=== PATIENT | male | born 1970 | race Caucasian/White ===

== ENCOUNTER → 2016-04-12 | Outpatient (CLI) | payer MEDICARE, BC ==
[2016-04-12 08:37] LABS: Basophils # (A) 0.1 k/uL (0-0.2); Basophils % (A) 1 %; CHCM 33.3; Eosinophils # (A) 0.2 k/uL (0-0.7); Eosinophils % (A) 3 %; HDW 2.71; HGB 15.6 gm/dL (13.0-17.5); Luc # (Auto) 0.13; Luc % (Auto) 2; Lymphocytes # (A) 0.9 k/uL (1.0-4.8); Lymphocytes % (A) 13 %; MCH 28.9 pg (25.0-35.0); MCHC 31.8 g/dL (31.0-37.0); MCV 90.7 fL (80.0-100.0); Mean Platelet Volume 8.6; Monocytes # (A) 0.7 k/uL (0-1.0); Monocytes % (A) 10 %; Neutrophils % (A) 72 %; RDW 13.3 % (11.5-15.5); WBC 6.9 k/uL (3.8-10.6); WBC (Perox) 7.23
[2016-04-12 11:29] LABS: Magnesium 2.2 mg/dL (1.6-2.3); Phosphorous 3.6 mg/dL (2.5-4.5)
[2016-04-12 11:40] LABS: % Iron Saturation 57.6 % (20-50)
== END | disposition home or self-care (01) ==
LOC: LABWHC1 07:47
PROVIDERS: ATTEND Nurse Practitioner Family
DX: N18.3 Chronic kidney disease, stage 3 (moderate) (principal); D64.9 Anemia, unspecified; N25.81 Secondary hyperparathyroidism of renal origin; E55.9 Vitamin D deficiency, unspecified; E21.3 Hyperparathyroidism, unspecified; M10.9 Gout, unspecified; N39.0 Urinary tract infection, site not specified; Z94.0 Kidney transplant status
CPT/HCPCS: 36415; 80053; 80061; 80197; 82248; 82306; 82728; 83036; 83540; 83550; 83735; 83970; 84100; 84550; 85025; 87799

== ENCOUNTER → 2016-04-22 | Outpatient (CLI) | payer MEDICARE, BC ==
[2016-04-22 08:45] LABS: Calcium 9.8 mg/dL (8.4-10.2); Potassium 4.9 mmol/L (3.5-5.1)
== END | disposition home or self-care (01) ==
LOC: LABWHC1 08:16
PROVIDERS: ATTEND Internal Medicine Nephrology
DX: Z94.0 Kidney transplant status (principal)
CPT/HCPCS: 36415; 80048

== ENCOUNTER → 2016-07-06 | Outpatient (CLI) | payer MEDICARE, BC ==
[2016-07-06 08:40] LABS: Appearance,Urine Clear (Clear); Bacteria,Urine Few /hpf; Bilirubin,Urine Negative (Negative); Glucose,Urine (UA) Negative (Negative); Ketones,Urine Negative (Negative); Leukocyte Esterase,Urine Moderate (Negative); Nitrite,Urine Negative (Negative); PH, Urine 6.5 (5.0-8.0); Particle Count 9235; Protein,Urine Negative (Negative); RBC,Urine <1 /hpf (0-5); Specific Gravity,Urine 1.004 (1.001-1.035); UA Billing (MACRO vs. MICRO) MICRO; Urobilinogen,Urine <2.0 mg/dL (<2.0); WBC,Urine 18 /hpf (0-5)
[2016-07-06 09:37] LABS: % Iron Saturation 91.2 % (20-50)
== END | disposition home or self-care (01) ==
LOC: LABWHC1 08:07
PROVIDERS: ATTEND Internal Medicine Nephrology
DX: E55.9 Vitamin D deficiency, unspecified (principal); E21.3 Hyperparathyroidism, unspecified; N39.0 Urinary tract infection, site not specified; Z94.0 Kidney transplant status
CPT/HCPCS: 36415; 81001; 82306; 82728; 83540; 83550; 83970

== ENCOUNTER 2016-09-26 02:55 | Emergency (ER) | payer MEDICARE, BC ==
--- NOTE | 2016-09-26 02:59 | ED ---
General Adult HPI - General Stated complaint: Hypoglycemia Time Seen by Provider: 09/26/16 02:58 Source: RN notes reviewed, old records reviewed - History of Present Illness Initial comments: This is a 45-year-old male here for evaluation of low blood sugar, emesis called the patient's house patient was found to be hypoglycemic. Patient does have a history of hypoglycemia. Is currently doing medication changes, denies alcohol, denies overdose, patient at this time is awake and alert without complaint - Related Data Home Medications Medication Instructions Recorded Confirmed Insulin Aspart [NovoLOG] See Protocol SQ DAILY 06/14/14 11/05/15 Insulin Glargine [Lantus] 25 unit SQ HS 06/14/14 11/05/15 Metoprolol Tartrate [Lopressor] 100 mg PO BID 06/14/14 11/05/[address] [Myfortic] 180 mg PO BID 06/14/14 11/05/15 Tamsulosin HCl [Flomax] 0.4 mg PO DAILY 06/14/14 11/05/15 amLODIPine [Norvasc] 5 mg PO BID 06/14/14 11/05/15 hydrALAZINE HCL [Apresoline] 100 mg PO TID 06/14/14 11/05/15 oxyCODONE-APAP 5-325MG [Percocet 1 each PO Q6HR PRN 06/14/14 11/05/15 5-325] predniSONE 10 mg PO DAILY 06/14/14 11/05/15 Glucagon Emergency Kit 1 mg SQ ONCE 09/10/14 11/05/15 Tacrolimus [Prograf] 3 mg PO Q12H 11/05/15 11/05/15 cloNIDine HCL [Catapres] 0.1 mg PO HS 11/05/15 11/05/15 Allergies Allergy/AdvReac Type Severity Reaction Status Date / Time bisoprolol fumarate Allergy Nausea & Verified 11/05/15 09:29 [From Ziac] Vomiting hydrochlorothiazide Allergy Nausea & Verified 11/05/15 09:29 [From Ziac] Vomiting Review of Systems ROS Statement: Those systems with pertinent positive or pertinent negative responses have been documented in the HPI. ROS Other: All systems not noted in ROS Statement are negative. Past Medical History Past Medical History: Diabetes Mellitus, Hypertension Additional Past Medical History / Comment(s): blind History of Any Multi-Drug Resistant Organisms: VRE Date of last positivie culture/infection: 06/15/2014 MDRO Source:: Urine-Enterococcus faecium Additional Past Surgical History / Comment(s): blind, Kidney transplant 2012 Past Psychological History: No Psychological Hx Reported Smoking Status: Never smoker Past Alcohol Use History: None Reported Past Drug Use History: None Reported General Exam General appearance: alert, in no apparent distress Head exam: Present: atraumatic, normocephalic, normal inspection Eye exam: Present: normal appearance, PERRL, EOMI. Absent: scleral icterus, conjunctival injection, periorbital swelling ENT exam: Present: normal exam, mucous membranes moist Neck exam: Present: normal inspection. Absent: tenderness, meningismus, lymphadenopathy Respiratory exam: Present: normal lung sounds bilaterally. Absent: respiratory distress, wheezes, rales, rhonchi, stridor Cardiovascular Exam: Present: regular rate, normal rhythm, normal heart sounds. Absent: systolic murmur, diastolic murmur, rubs, gallop, clicks GI/Abdominal exam: Present: soft, normal bowel sounds. Absent: distended, tenderness, guarding, rebound, rigid Extremities exam: Present: normal inspection, full ROM, normal capillary refill. Absent: tenderness, pedal edema, joint swelling, calf tenderness Back exam: Present: normal inspection Neurological exam: Present: alert, oriented X3, CN II-XII intact Psychiatric exam: Present: normal affect, normal mood Skin exam: Present: warm, dry, intact, normal color. Absent: rash Course - Reevaluation(s) Reevaluation #1: 09/26/16 02:58 Patient's blood sugar remained stable, patient able to eat and drink without difficulty Medical Decision Making - Medical Decision Making 45-year-old ER for evaluation of hypoglycemia, symptoms resolved upon arrival to emergency room. Patient this time is asymptomatic, able to eat patient observed in emergency room for an hour without difficulty recurrence. Patient can be discharged home Disposition Clinical Impression: Hypoglycemia Disposition: HOME SELF-CARE Condition: Good Instructions: Hypoglycemia in a Person with Diabetes (ED) Referrals: Jim Acuna MD [Primary Care Provider] - 1-2 days
[2016-09-26 03:32] LABS: Glucose,Whole Blood 84 mg/dL (75-99)
[2016-09-26 05:07] VITALS: RESP 18
[2016-09-26 05:07] LABS: Glucose,Whole Blood 166 mg/dL (75-99)
[2016-09-26 05:37] VITALS: BP 135/79; PULSE 68; TEMP 97.3
== END 2016-09-26 05:36 | disposition home or self-care (01) ==
LOC: EC 02:55
DX: E11.649 Type 2 diabetes mellitus with hypoglycemia without coma (principal); R11.10 Vomiting, unspecified; I10 Essential (primary) hypertension; Z79.4 Long term (current) use of insulin; Z79.52 Long term (current) use of systemic steroids; Z79.899 Other long term (current) drug therapy; Z88.8 Allergy status to other drugs, medicaments and biological substances
CPT/HCPCS: 36415; 99285

== ENCOUNTER → 2016-10-07 | Outpatient (CLI) | payer MEDICARE, BC ==
[2016-10-07 08:11] LABS: Appearance,Urine Clear (Clear); Bilirubin,Urine Negative (Negative); Glucose,Urine (UA) Negative (Negative); Ketones,Urine Negative (Negative); Leukocyte Esterase,Urine Negative (Negative); Nitrite,Urine Negative (Negative); Protein,Urine Negative (Negative); Specific Gravity,Urine 1.004 (1.001-1.035); UA Billing (MACRO vs. MICRO) CHEM; Urobilinogen,Urine <2.0 mg/dL (<2.0)
[2016-10-07 08:18] LABS: Basophils # (A) 0.1 k/uL (0-0.2); Basophils % (A) 2 %; CH 30.7; CHCM 33.8; Eosinophils # (A) 0.2 k/uL (0-0.7); Eosinophils % (A) 3 %; HCT 47.7 % (39.0-53.0); HDW 2.69; HGB 16.2 gm/dL (13.0-17.5); Luc # (Auto) 0.21; Luc % (Auto) 3; Lymphocytes # (A) 0.9 k/uL (1.0-4.8); Lymphocytes % (A) 12 %; MCHC 33.9 g/dL (31.0-37.0); MCV 91.4 fL (80.0-100.0); Mean Platelet Volume 9.1; Monocytes # (A) 0.7 k/uL (0-1.0); Monocytes % (A) 9 %; Neutrophils # (A) 5.2 k/uL (1.3-7.7); Neutrophils % (A) 72 %; RBC 5.22 m/uL (4.30-5.90); RDW 14.7 % (11.5-15.5); WBC 7.2 k/uL (3.8-10.6); WBC (Perox) 7.04
[2016-10-07 09:46] LABS: Phosphorous 3.4 mg/dL (2.5-4.5)
[2016-10-07 09:57] LABS: % Iron Saturation 73.2 % (20-50)
== END | disposition home or self-care (01) ==
LOC: LABWHC1 07:38
PROVIDERS: ATTEND Internal Medicine Nephrology
DX: N18.3 Chronic kidney disease, stage 3 (moderate) (principal); D63.1 Anemia in chronic kidney disease; N25.81 Secondary hyperparathyroidism of renal origin; N39.0 Urinary tract infection, site not specified; Z94.0 Kidney transplant status
CPT/HCPCS: 36415; 80197; 81003; 82306; 82728; 83540; 83550; 83735; 83970; 84100; 85025

== ENCOUNTER 2016-10-28 04:52 | Emergency (ER) | payer MEDICARE, BC ==
[2016-10-28 05:00] LABS: Glucose,Whole Blood 152 mg/dL (75-99)
[2016-10-28 05:02] VITALS: BP 182/87; PULSE 70; RESP 18; TEMP 98
--- NOTE | 2016-10-28 05:37 | ED ---
General Adult HPI - General Chief complaint: Recheck/Abnormal Lab/Rx Stated complaint: Hypoglycemia Time Seen by Provider: 10/28/16 05:08 Source: patient Mode of arrival: EMS Limitations: no limitations - History of Present Illness Initial comments: This patient is a 46-year-old man with history of diabetes and previous kidney transplant, who presents by EMS. Patient states that he believes he had a hypoglycemic episode. EMS was phoned by the patient's family member when they found it difficult to awaken him. In past times, his blood sugar has been low. When EMS arrived they were able to arouse the patient and they did find that his blood sugar was proximally 60. They did give dextrose, and brought the patient here. On arrival, the patient is alert and oriented and he does not have any complaints. He does state that he is sometimes difficult to awaken in the morning though this is often associated with his blood sugar being low. He is not expressing any other symptoms like he usually has, including no headache or diaphoresis. -: minutes(s) Improves with: none Worsens with: none Associated Symptoms: denies other symptoms Treatments Prior to Arrival: none - Related Data Home Medications Medication Instructions Recorded Confirmed Insulin Aspart [NovoLOG] See Protocol SQ DAILY 06/14/14 09/26/16 Insulin Glargine [Lantus] 25 unit SQ HS 06/14/14 09/26/16 Metoprolol Tartrate [Lopressor] 100 mg PO BID 06/14/14 09/26/[address] [Myfortic] 180 mg PO BID 06/14/14 09/26/16 Tamsulosin HCl [Flomax] 0.4 mg PO DAILY 06/14/14 09/26/16 amLODIPine [Norvasc] 5 mg PO BID 06/14/14 09/26/16 hydrALAZINE HCL [Apresoline] 100 mg PO TID 06/14/14 09/26/16 oxyCODONE-APAP 5-325MG [Percocet 1 each PO Q6HR PRN 06/14/14 09/26/16 5-325] predniSONE 10 mg PO DAILY 06/14/14 09/26/16 Glucagon Emergency Kit 1 mg SQ ONCE 09/10/14 09/26/16 Tacrolimus [Prograf] 3 mg PO Q12H 11/05/15 09/26/16 cloNIDine HCL [Catapres] 0.1 mg PO HS 11/05/15 09/26/16 Allergies Allergy/AdvReac Type Severity Reaction Status Date / Time bisoprolol fumarate Allergy Nausea & Verified 10/28/16 05:03 [From Ziac] Vomiting hydrochlorothiazide Allergy Nausea & Verified 10/28/16 05:03 [From Ziac] Vomiting Review of Systems ROS Statement: Those systems with pertinent positive or pertinent negative responses have been documented in the HPI. ROS Other: All systems not noted in ROS Statement are negative. Constitutional: Denies: fever, chills, weakness Eyes: Denies: vision change Respiratory: Denies: cough, dyspnea Cardiovascular: Denies: chest pain Gastrointestinal: Denies: abdominal pain, vomiting, diarrhea Musculoskeletal: Denies: back pain Skin: Denies: rash Neurological: Denies: headache, weakness, numbness Past Medical History Past Medical History: Diabetes Mellitus, Hypertension Additional Past Medical History / Comment(s): blind History of Any Multi-Drug Resistant Organisms: VRE Date of last positivie culture/infection: 06/15/2014 MDRO Source:: Urine-Enterococcus faecium Additional Past Surgical History / Comment(s): blind, Kidney transplant 2011 Past Psychological History: No Psychological Hx Reported Smoking Status: Never smoker Past Alcohol Use History: Occasional Past Drug Use History: None Reported General Exam General appearance: alert, in no apparent distress Head exam: Present: atraumatic, normocephalic ENT exam: Present: normal oropharynx Neck exam: Present: normal inspection, full ROM Respiratory exam: Present: normal lung sounds bilaterally Cardiovascular Exam: Present: regular rate, normal rhythm, normal heart sounds. Absent: systolic murmur, diastolic murmur, rubs, gallop GI/Abdominal exam: Present: soft. Absent: distended, tenderness, guarding, rebound Extremities exam: Present: normal inspection, normal capillary refill. Absent: pedal edema, calf tenderness Back exam: Present: normal inspection. Absent: CVA tenderness (R), CVA tenderness (L) Neurological exam: Present: alert, oriented X3. Absent: motor sensory deficit Skin exam: Present: warm, dry, intact, normal color. Absent: rash Course Vital Signs 10/28/16 10/28/16 04:55 05:56 Temperature 98.0 F 98.0 F Pulse Rate 70 70 Respiratory 18 18 Rate Blood Pressure 182/87 182/87 O2 Sat by Pulse 98 98 Oximetry Medical Decision Making - Lab Data Lab Results 10/28/16 Range/Units 04:56 POC Glucose (mg/dL) 152 H (75-99) mg/dL POC Glu Brush Filler Hand ID Francine Hernandez Disposition Disposition: HOME SELF-CARE Condition: Good Instructions: Hypoglycemia in a Person with Diabetes (ED) Referrals: Jim Acuna MD [Primary Care Provider] - 1-2 days
== END 2016-10-28 05:56 | disposition home or self-care (01) ==
LOC: EC 04:52
DX: E11.649 Type 2 diabetes mellitus with hypoglycemia without coma (principal); I10 Essential (primary) hypertension; Z94.0 Kidney transplant status; Z88.8 Allergy status to other drugs, medicaments and biological substances; Z79.4 Long term (current) use of insulin; Z79.52 Long term (current) use of systemic steroids; Z79.899 Other long term (current) drug therapy
CPT/HCPCS: 36415; 93005; 99285

== ENCOUNTER 2016-11-26 11:35 | Emergency (ER) | payer MEDICARE, BC ==
[2016-11-26 11:50] VITALS: RESP 18
--- NOTE | 2016-11-26 11:54 | ED ---
General Adult HPI - General Chief complaint: Recheck/Abnormal Lab/Rx Stated complaint: Hypoglycemia Time Seen by Provider: 11/26/16 11:40 Source: EMS, RN notes reviewed Mode of arrival: EMS Limitations: no limitations - History of Present Illness Initial comments: This is a 46-year-old male who is brought in by EMS because his sugar was low and he had decreased responsiveness. When EMS got a line and gave him D50 and immediately became alert and oriented 3. Patient states he had a small breakfast and normal in the did some walking up and down stairs lifting some totes that he normally doesn't do. Patient states he has no complaints he has not been sick recently he denies any headache denies numbness weakness. Patient denies lightheadedness or dizziness. Patient denies any chest pain palpitations difficulty breathing or shortness of breath per patient denies any recent fever chills or cough. Patient denies abdominal pain patient denies nausea vomiting or diarrhea. - Related Data Home Medications Medication Instructions Recorded Confirmed Insulin Aspart [NovoLOG] See Protocol SQ DAILY 06/14/14 09/26/16 Insulin Glargine [Lantus] 25 unit SQ HS 06/14/14 09/26/16 Metoprolol Tartrate [Lopressor] 100 mg PO BID 06/14/14 09/26/[address] [Myfortic] 180 mg PO BID 06/14/14 09/26/16 Tamsulosin HCl [Flomax] 0.4 mg PO DAILY 06/14/14 09/26/16 amLODIPine [Norvasc] 5 mg PO BID 06/14/14 09/26/16 hydrALAZINE HCL [Apresoline] 100 mg PO TID 06/14/14 09/26/16 oxyCODONE-APAP 5-325MG [Percocet 1 each PO Q6HR PRN 06/14/14 09/26/16 5-325] predniSONE 10 mg PO DAILY 06/14/14 09/26/16 Glucagon Emergency Kit 1 mg SQ ONCE 09/10/14 09/26/16 Tacrolimus [Prograf] 3 mg PO Q12H 11/05/15 09/26/16 cloNIDine HCL [Catapres] 0.1 mg PO HS 11/05/15 09/26/16 Allergies Allergy/AdvReac Type Severity Reaction Status Date / Time bisoprolol fumarate Allergy Nausea & Verified 10/28/16 05:03 [From Ziac] Vomiting hydrochlorothiazide Allergy Nausea & Verified 10/28/16 05:03 [From Ziac] Vomiting Review of Systems ROS Statement: Those systems with pertinent positive or pertinent negative responses have been documented in the HPI. ROS Other: All systems not noted in ROS Statement are negative. Past Medical History Past Medical History: Diabetes Mellitus, Hypertension Additional Past Medical History / Comment(s): blind History of Any Multi-Drug Resistant Organisms: VRE Date of last positivie culture/infection: 06/15/2014 MDRO Source:: Urine-Enterococcus faecium Additional Past Surgical History / Comment(s): blind, Kidney transplant 2011 Past Psychological History: No Psychological Hx Reported Smoking Status: Never smoker Past Alcohol Use History: Occasional Past Drug Use History: None Reported General Exam - General Exam Comments Initial Comments: GENERAL: Patient is well-developed and well-nourished. Patient is nontoxic and well- hydrated and is in no acute distress. ENT: Neck is soft and supple. No significant lymphadenopathy is noted. Oropharynx is clear. Moist mucous membranes. Neck has full range of motion without eliciting any pain. EYES: The sclera were anicteric and conjunctiva were pink and moist. Extraocular movements were intact and pupils were equal round and reactive to light. Eyelids were unremarkable. PULMONARY: Unlabored respirations. Good breath sounds bilaterally. No audible rales rhonchi or wheezing was noted. CARDIOVASCULAR: There is a regular rate and rhythm without any murmurs gallops or rubs. ABDOMEN: Soft and nontender with normal bowel sounds. No palpable organomegaly was noted. There is no palpable pulsatile mass. SKIN: Skin is clear with no lesions or rashes and otherwise unremarkable. NEUROLOGIC: Patient is alert and oriented x3. Cranial nerves II through XII are grossly intact. Motor and sensory are also intact. Normal speech, volume and content. Symmetrical smile. MUSCULOSKELETAL: Normal extremities with adequate strength and full range of motion. LYMPHATICS: No significant lymphadenopathy is noted PSYCHIATRIC: Normal psychiatric evaluation. Normal interpersonal interactions appears functionally intact in deals appropriately with others. No signs of depression. No signs of anxiety. Limitations: no limitations Course Vital Signs 11/26/16 11/26/16 11:42 12:29 Temperature 98.7 F Pulse Rate 62 67 Respiratory 18 18 Rate Blood Pressure 169/84 136/75 O2 Sat by Pulse 98 98 Oximetry Medical Decision Making - Medical Decision Making Patient has been asymptomatic while in the emergency department. Patient ate well in the emergency department. - Lab Data Result diagrams: 11/26/16 12:02 11/26/16 12:02 Lab Results 11/26/16 11/26/16 11/26/16 Range/Units 11:55 12:02 12:02 WBC 8.9 (3.8-10.6) k/uL RBC 5.61 (4.30-5.90) m/uL Hgb 16.8 (13.0-17.5) gm/dL Hct 50.1 (39.0-53.0) % MCV 89.2 (80.0-100.0) fL MCH 29.9 (25.0-35.0) pg MCHC 33.5 (31.0-37.0) g/dL RDW 14.7 (11.5-15.5) % Plt Count 56 L D (150-450) k/uL Neutrophils % 88 % Lymphocytes % 5 % Monocytes % 6 % Eosinophils % 1 % Basophils % 0 % Neutrophils # 7.8 H (1.3-7.7) k/uL Lymphocytes # 0.4 L (1.0-4.8) k/uL Monocytes # 0.5 (0-1.0) k/uL Eosinophils # 0.1 (0-0.7) k/uL Basophils # 0.0 (0-0.2) k/uL Manual Slide Review Performed Large Platelets Present Sodium 141 (137-145) mmol/L Potassium 4.4 (3.5-5.1) mmol/L Chloride 106 (98-107) mmol/L Carbon Dioxide 25 (22-30) mmol/L Anion Gap 10 mmol/L BUN 20 (9-20) mg/dL Creatinine 1.39 H (0.66-1.25) mg/dL Est GFR (MDRD) Af Amer >60 (>60 ml/min/1.73 sqM) Est GFR (MDRD) Non-Af 55 (>60 ml/min/1.73 sqM) Glucose 134 H (74-99) mg/dL POC Glucose (mg/dL) 143 H (75-99) mg/dL POC Glu Multiple Cut Off Saw Operator ID Bowling, Ana Rosa Calcium 10.0 (8.4-10.2) mg/dL Total Bilirubin 0.7 (0.2-1.3) mg/dL AST 24 (17-59) U/L ALT 30 (21-72) U/L Alkaline Phosphatase 62 (38-126) U/L Total Protein 7.3 (6.3-8.2) g/dL Albumin 4.6 (3.5-5.0) g/dL Disposition Clinical Impression: Hypoglycemia Disposition: HOME SELF-CARE Instructions: Hypoglycemia in a Person with Diabetes (ED) Referrals: Jim Acuna MD [Primary Care Provider] - 1-2 days Time of Disposition: 12:43
[2016-11-26 11:58] LABS: Glucose,Whole Blood 143 mg/dL (75-99)
[2016-11-26 12:10] LABS: Basophils % (A) 0 %; CH 30.9; CHCM 34.9; Eosinophils # (A) 0.1 k/uL (0-0.7); Eosinophils % (A) 1 %; HCT 50.1 % (39.0-53.0); HDW 2.77; HGB 16.8 gm/dL (13.0-17.5); Luc # (Auto) 0.07; Luc % (Auto) 1; Lymphocytes # (A) 0.4 k/uL (1.0-4.8); Lymphocytes % (A) 5 %; MCH 29.9 pg (25.0-35.0); MCHC 33.5 g/dL (31.0-37.0); MCV 89.2 fL (80.0-100.0); Mean Platelet Volume 9.3; Monocytes # (A) 0.5 k/uL (0-1.0); Monocytes % (A) 6 %; Neutrophils # (A) 7.8 k/uL (1.3-7.7); Neutrophils % (A) 88 %; RBC 5.61 m/uL (4.30-5.90); RDW 14.7 % (11.5-15.5); WBC 8.9 k/uL (3.8-10.6); WBC (Perox) 8.71
[2016-11-26 12:18] LABS: ALT 30 U/L (21-72); AST 24 U/L (17-59); Alkaline Phosphatase 62 U/L (38-126); Anion Gap 10 mmol/L; Blood Urea Nitrogen 20 mg/dL (9-20); Carbon Dioxide 25 mmol/L (22-30); Chloride 106 mmol/L (98-107); Glucose 134 mg/dL (74-99); Non-African American GFR(MDRD) 55 (>60 ml/min/1.73 sqM); Potassium 4.4 mmol/L (3.5-5.1); Sodium 141 mmol/L (137-145); Total Bilirubin 0.7 mg/dL (0.2-1.3); Total Protein 7.3 g/dL (6.3-8.2)
[2016-11-26 12:34] LABS: Large Platelets Present; Manual Review Performed
[2016-11-26 12:56] VITALS: BP 121/67; PULSE 72; TEMP 97.8
== END 2016-11-26 12:56 | disposition home or self-care (01) ==
LOC: EC 11:35
DX: E11.649 Type 2 diabetes mellitus with hypoglycemia without coma (principal); I10 Essential (primary) hypertension; Z94.0 Kidney transplant status; Z79.51 Long term (current) use of inhaled steroids; Z79.4 Long term (current) use of insulin; Z79.899 Other long term (current) drug therapy; Z88.8 Allergy status to other drugs, medicaments and biological substances
CPT/HCPCS: 36415; 80053; 85025; 99285

== ENCOUNTER 2017-02-15 05:54 | Emergency (ER) | payer MEDICARE, BC ==
[2017-02-15 06:01] LABS: Glucose,Whole Blood 177 mg/dL (75-99)
[2017-02-15 06:04] VITALS: RESP 18; TEMP 97.1
--- NOTE | 2017-02-15 06:12 | ED ---
General Adult HPI - General Stated complaint: hypoglycemia Time Seen by Provider: 02/15/17 05:58 Source: patient, EMS Mode of arrival: EMS Limitations: no limitations - History of Present Illness Initial comments: This is a 46-year-old type I diabetic who presents emergency department for difficulty with waking. The patient's father had a difficult time arousing him this morning and thus called an ambulance. The ambulance stated that his initial blood sugar on scene was 50. He was given glucose in route and had complete resolution of his symptoms. The patient states he is currently asymptomatic. He states that he has been compliant with his medications. He is currently on Levemir 38 units in the morning which she has been compliant with. He is also on a sliding scale insulin for the rest of his meals. The patient states that this has happened to him once previously. He denies any chest pain or short of breath. No nausea or vomiting. No other complaints. - Related Data Home Medications Medication Instructions Recorded Confirmed Insulin Aspart [NovoLOG] See Protocol SQ DAILY 06/14/14 01/23/17 Metoprolol Tartrate [Lopressor] 100 mg PO BID 06/14/14 01/23/[address] [Myfortic] 180 mg PO BID 06/14/14 01/23/17 Tamsulosin HCl [Flomax] 0.4 mg PO DAILY 06/14/14 01/23/17 amLODIPine [Norvasc] 5 mg PO BID 06/14/14 01/23/17 hydrALAZINE HCL [Apresoline] 100 mg PO TID 06/14/14 01/23/17 oxyCODONE-APAP 5-325MG [Percocet 1 tab PO Q6HR PRN 06/14/14 01/23/17 5-325] predniSONE 10 mg PO DAILY 06/14/14 01/23/17 Glucagon Emergency Kit 1 mg SQ ONCE 09/10/14 01/23/17 Tacrolimus [Prograf] 3 mg PO Q12H 11/05/15 01/23/17 cloNIDine HCL [Catapres] 0.1 mg PO HS 11/05/15 01/23/17 Insulin Detemir [Levemir Flextouch] 38 unit SQ DAILY 11/26/16 01/23/17 L.acidoph,Paracasei, B.lactis 1 cap PO DAILY 11/26/16 01/23/17 [Probiotic] Multivitamins, Thera [Multivitamin 1 tab PO DAILY 11/26/16 01/23/17 (formulary)] [place]-3 Fatty Acids/Fish Oil [Fish 1 cap PO DAILY 11/26/16 01/23/17 Oil 1,000 mg Softgel] Sodium Polystyrene Sulfon/Sorb 15 gm PO Q30D 01/23/17 01/23/17 [Kionex 15 gm/60 ml Suspension] Allergies Allergy/AdvReac Type Severity Reaction Status Date / Time bisoprolol fumarate Allergy Nausea & Verified 02/15/17 06:04 [From Ziac] Vomiting hydrochlorothiazide Allergy Nausea & Verified 02/15/17 06:04 [From Ziac] Vomiting Review of Systems ROS Statement: Those systems with pertinent positive or pertinent negative responses have been documented in the HPI. ROS Other: All systems not noted in ROS Statement are negative. Past Medical History Past Medical History: Diabetes Mellitus, Hypertension Additional Past Medical History / Comment(s): blind History of Any Multi-Drug Resistant Organisms: VRE Date of last positivie culture/infection: 06/15/2014 MDRO Source:: Urine-Enterococcus faecium Additional Past Surgical History / Comment(s): blind, Kidney transplant 2011 Past Psychological History: No Psychological Hx Reported Smoking Status: Never smoker Past Alcohol Use History: Occasional Past Drug Use History: None Reported General Exam - General Exam Comments Initial Comments: Constitutional: Awake alert Appears comfortable Head: Normocephalic atraumatic Eyes: no conjunctival injection No scleral icterus EOMI Neck: No JVD Supple Heart: Regular rate rhythm normal S1-S2 no murmurs Lungs: Clear to auscultation bilaterally No wheezing No rales Abdomen: Soft nondistended nontender Extremities: Non edematous DP pulses intact Radial pulses intact Neuro: A&Ox3 No focal neurologic deficits Psych: Appropriate mood and affect Limitations: no limitations Course Vital Signs 02/15/17 05:58 Temperature 97.1 F L Pulse Rate 77 Respiratory 18 Rate Blood Pressure 158/83 O2 Sat by Pulse 99 Oximetry Medical Decision Making - Medical Decision Making Is a 46-year-old male presents emergency department for hypoglycemia. The patient was watched emergency department for one hour and his sugars did not decrease. He has no complaints. He is going to go home. Told to continue to monitor his sugars and call his primary doctor. If he has continued problems he needs to return emergency Department. All questions were answered. - Lab Data Lab Results 02/15/17 02/15/17 Range/Units 05:56 06:53 POC Glucose (mg/dL) 177 H 154 H (75-99) mg/dL POC Glu Office Associate Marlyn Monroe Jalissa Disposition Clinical Impression: Hypoglycemia Disposition: HOME SELF-CARE Condition: Stable Instructions: Hypoglycemia in a Person with Diabetes (ED) Referrals: Jim Acuna MD [Primary Care Provider] - 1-2 days
[2017-02-15 06:57] LABS: Glucose,Whole Blood 154 mg/dL (75-99)
[2017-02-15 07:12] VITALS: BP 131/63; PULSE 78
== END 2017-02-15 07:09 | disposition home or self-care (01) ==
LOC: EC 05:54
DX: E11.649 Type 2 diabetes mellitus with hypoglycemia without coma (principal); I10 Essential (primary) hypertension; Z79.4 Long term (current) use of insulin; Z79.52 Long term (current) use of systemic steroids; Z79.899 Other long term (current) drug therapy
CPT/HCPCS: 36415; 99284

== ENCOUNTER 2017-03-10 07:02 | Emergency (ER) | payer MEDICARE, BC ==
[2017-03-10 07:10] VITALS: BP 148/82; PULSE 80; RESP 16; TEMP 96
[2017-03-10 07:11] LABS: Glucose,Whole Blood 138 mg/dL (75-99)
--- NOTE | 2017-03-10 07:51 | ED ---
General Adult HPI - General Chief complaint: Recheck/Abnormal Lab/Rx Stated complaint: HYPOGLYCEMIA Time Seen by Provider: 03/10/17 07:25 Source: EMS, RN notes reviewed, old records reviewed Mode of arrival: EMS Limitations: no limitations - History of Present Illness Initial comments: This is a 46-year-old male to the ER for evaluation of low blood sugar. Patient sent in and brought in by EMS for evaluation of low blood sugar. Patient's blood sugars improved, he is on insulin he is able to eat at this time. Patient denies any other complaints. States that he feels normal - Related Data Home Medications Medication Instructions Recorded Confirmed Insulin Aspart [NovoLOG] See Protocol SQ DAILY 06/14/14 01/23/17 Metoprolol Tartrate [Lopressor] 100 mg PO BID 06/14/14 01/23/[address] [Myfortic] 180 mg PO BID 06/14/14 01/23/17 Tamsulosin HCl [Flomax] 0.4 mg PO DAILY 06/14/14 01/23/17 amLODIPine [Norvasc] 5 mg PO BID 06/14/14 01/23/17 hydrALAZINE HCL [Apresoline] 100 mg PO TID 06/14/14 01/23/17 oxyCODONE-APAP 5-325MG [Percocet 1 tab PO Q6HR PRN 06/14/14 01/23/17 5-325] predniSONE 10 mg PO DAILY 06/14/14 01/23/17 Glucagon Emergency Kit 1 mg SQ ONCE 09/10/14 01/23/17 Tacrolimus [Prograf] 3 mg PO Q12H 11/05/15 01/23/17 cloNIDine HCL [Catapres] 0.1 mg PO HS 11/05/15 01/23/17 Insulin Detemir [Levemir Flextouch] 38 unit SQ DAILY 11/26/16 01/23/17 L.acidoph,Paracasei, B.lactis 1 cap PO DAILY 11/26/16 01/23/17 [Probiotic] Multivitamins, Thera [Multivitamin 1 tab PO DAILY 11/26/16 01/23/17 (formulary)] [place]-3 Fatty Acids/Fish Oil [Fish 1 cap PO DAILY 11/26/16 01/23/17 Oil 1,000 mg Softgel] Sodium Polystyrene Sulfon/Sorb 15 gm PO Q30D 01/23/17 01/23/17 [Kionex 15 gm/60 ml Suspension] Allergies Allergy/AdvReac Type Severity Reaction Status Date / Time bisoprolol fumarate Allergy Nausea & Verified 03/10/17 07:10 [From Ziac] Vomiting hydrochlorothiazide Allergy Nausea & Verified 03/10/17 07:10 [From Ziac] Vomiting Review of Systems ROS Statement: Those systems with pertinent positive or pertinent negative responses have been documented in the HPI. ROS Other: All systems not noted in ROS Statement are negative. Past Medical History Past Medical History: Diabetes Mellitus, Hypertension Additional Past Medical History / Comment(s): blind History of Any Multi-Drug Resistant Organisms: VRE Date of last positivie culture/infection: 06/15/2014 MDRO Source:: Urine-Enterococcus faecium Additional Past Surgical History / Comment(s): blind, Kidney transplant 2011 Past Psychological History: No Psychological Hx Reported Smoking Status: Never smoker Past Alcohol Use History: Occasional Past Drug Use History: None Reported General Exam Limitations: no limitations General appearance: alert, in no apparent distress Head exam: Present: atraumatic, normocephalic, normal inspection Eye exam: Present: normal appearance, PERRL, EOMI. Absent: scleral icterus, conjunctival injection, periorbital swelling ENT exam: Present: normal exam, mucous membranes moist Neck exam: Present: normal inspection. Absent: tenderness, meningismus, lymphadenopathy Respiratory exam: Present: normal lung sounds bilaterally. Absent: respiratory distress, wheezes, rales, rhonchi, stridor Cardiovascular Exam: Present: regular rate, normal rhythm, normal heart sounds. Absent: systolic murmur, diastolic murmur, rubs, gallop, clicks GI/Abdominal exam: Present: soft, normal bowel sounds. Absent: distended, tenderness, guarding, rebound, rigid Extremities exam: Present: normal inspection, full ROM, normal capillary refill. Absent: tenderness, pedal edema, joint swelling, calf tenderness Back exam: Present: normal inspection Neurological exam: Present: alert, oriented X3, CN II-XII intact Psychiatric exam: Present: normal affect, normal mood Skin exam: Present: warm, dry, intact, normal color. Absent: rash Course Vital Signs 03/10/17 07:03 Temperature 96 F L Pulse Rate 80 Respiratory 16 Rate Blood Pressure 148/82 O2 Sat by Pulse 98 Oximetry Medical Decision Making - Medical Decision Making 46 male the ER for evaluation. Patient presents to ER for evaluation regarding low blood sugar, patient has history of low blood sugar, patient states he feels normal and wants to be discharged home - Lab Data Lab Results 03/10/17 Range/Units 07:09 POC Glucose (mg/dL) 138 H (75-99) mg/dL POC Glu Quill Cleaner ID Rosio Beverly Disposition Clinical Impression: Hypoglycemia Disposition: HOME SELF-CARE Condition: Good Instructions: Hypoglycemia in a Person with Diabetes (ED) Referrals: Jim Acuna MD [Primary Care Provider] - 1-2 days
== END 2017-03-10 08:02 | disposition home or self-care (01) ==
LOC: EC 07:02
DX: E11.649 Type 2 diabetes mellitus with hypoglycemia without coma (principal); I10 Essential (primary) hypertension; H54.7 Unspecified visual loss; Z79.4 Long term (current) use of insulin; Z79.52 Long term (current) use of systemic steroids; Z79.899 Other long term (current) drug therapy; Z88.8 Allergy status to other drugs, medicaments and biological substances; Z98.890 Other specified postprocedural states
CPT/HCPCS: 36415; 99284

== ENCOUNTER → 2017-04-09 | Outpatient (CLI) | payer MEDICARE, BC ==
[2017-04-09 08:40] LABS: Appearance,Urine Clear (Clear); Bilirubin,Urine Negative (Negative); Blood,Urine Negative (Negative); Color,Urine Light Yellow; Glucose,Urine (UA) 3+ (Negative); Ketones,Urine Negative (Negative); Leukocyte Esterase,Urine Negative (Negative); Nitrite,Urine Negative (Negative); Protein,Urine Negative (Negative); Specific Gravity,Urine 1.003 (1.001-1.035); Urobilinogen,Urine <2.0 mg/dL (<2.0)
[2017-04-09 15:06] LABS: Iron Saturation 76.13 (15.00-50.00)
[2017-04-09 15:15] LABS: Vitamin D 25 Hydroxy 35.2 ng/mL (30.0-100.0)
[2017-04-09 19:45] LABS: Parathyroid Hormone Intact 129.7 pg/mL (14.0-72.0)
== END | disposition home or self-care (01) ==
LOC: LABWHC1 07:51
PROVIDERS: ATTEND Internal Medicine Nephrology
DX: N18.3 Chronic kidney disease, stage 3 (moderate) (principal); N25.81 Secondary hyperparathyroidism of renal origin; D64.9 Anemia, unspecified; M10.9 Gout, unspecified; N39.0 Urinary tract infection, site not specified
CPT/HCPCS: 36415; 81003; 82306; 82728; 83540; 83550; 83970

== ENCOUNTER 2017-05-15 15:55 | Emergency (ER) | payer MEDICARE, BC ==
[2017-05-15 16:08] VITALS: RESP 18
--- NOTE | 2017-05-15 16:21 | ED ---
General Adult HPI - General Chief complaint: Recheck/Abnormal Lab/Rx Stated complaint: hypoglycemia Time Seen by Provider: 05/15/17 16:00 Source: patient, EMS, RN notes reviewed Mode of arrival: EMS Limitations: no limitations - History of Present Illness Initial comments: This is a 46-year-old male who presents emergency Department with a past medical history significant for kidney transplant diabetes and blindness. Patient states today he did eat lunch but he had not eaten his afternoon snack and used a little bit more work from [employer] he normally does and he believes that's why he became hypoglycemic. When his father found him his sugar was 42 and the patient remembers nothing after eating lunch. Patient states he has not been sick in any way recently and currently states he has no symptoms. Patient denies headache patient denies numbness weakness. Patient denies chest pain difficulty breathing or shortness of breath. Patient denies any recent fever chills or cough. Patient denies abdominal pain patient denies nausea vomiting diarrhea. - Related Data Home Medications Medication Instructions Recorded Confirmed Insulin Aspart [NovoLOG] See Protocol SQ DAILY 06/14/14 05/15/17 Metoprolol Tartrate [Lopressor] 100 mg PO BID 06/14/14 05/15/[address] [Myfortic] 180 mg PO BID 06/14/14 05/15/17 Tamsulosin HCl [Flomax] 0.4 mg PO DAILY 06/14/14 05/15/17 amLODIPine [Norvasc] 5 mg PO BID 06/14/14 05/15/17 hydrALAZINE HCL [Apresoline] 100 mg PO TID 06/14/14 05/15/17 oxyCODONE-APAP 5-325MG [Percocet 1 tab PO Q6HR PRN 06/14/14 05/15/17 5-325] predniSONE 10 mg PO DAILY 06/14/14 05/15/17 Glucagon Emergency Kit 1 mg SQ ONCE 09/10/14 05/15/17 Tacrolimus [Prograf] 3 mg PO Q12H 11/05/15 05/15/17 cloNIDine HCL [Catapres] 0.1 mg PO HS 11/05/15 05/15/17 Insulin Detemir [Levemir Flextouch] 38 unit SQ DAILY 11/26/16 05/15/17 L.acidoph,Paracasei, B.lactis 1 cap PO DAILY 11/26/16 05/15/17 [Probiotic] Multivitamins, Thera [Multivitamin 1 tab PO DAILY 11/26/16 05/15/17 (formulary)] [place]-3 Fatty Acids/Fish Oil [Fish 1 cap PO DAILY 11/26/16 05/15/17 Oil 1,000 mg Softgel] Sodium Polystyrene Sulfon/Sorb 15 gm PO Q30D 01/23/17 05/15/17 [Kionex 15 gm/60 ml Suspension] Allergies Allergy/AdvReac Type Severity Reaction Status Date / Time bisoprolol fumarate Allergy Nausea & Verified 05/15/17 16:32 [From Ziac] Vomiting hydrochlorothiazide Allergy Nausea & Verified 05/15/17 16:32 [From Ziac] Vomiting Review of Systems ROS Statement: Those systems with pertinent positive or pertinent negative responses have been documented in the HPI. ROS Other: All systems not noted in ROS Statement are negative. Past Medical History Past Medical History: Diabetes Mellitus, Hypertension Additional Past Medical History / Comment(s): blind, was on dialysis prior to kidney transplant, shunt left arm History of Any Multi-Drug Resistant Organisms: VRE Date of last positivie culture/infection: 06/15/2014 MDRO Source:: Urine-Enterococcus faecium Additional Past Surgical History / Comment(s): Kidney transplant 2011, eye sx Past Psychological History: No Psychological Hx Reported Smoking Status: Never smoker Past Alcohol Use History: None Reported Past Drug Use History: None Reported General Exam - General Exam Comments Initial Comments: GENERAL: Patient is well-developed and well-nourished. Patient is nontoxic and well- hydrated and is in no acute distress. ENT: Neck is soft and supple. No significant lymphadenopathy is noted. Oropharynx is clear. Moist mucous membranes. PULMONARY: Unlabored respirations. Good breath sounds bilaterally. No audible rales rhonchi or wheezing was noted. CARDIOVASCULAR: There is a regular rate and rhythm without any murmurs gallops or rubs. ABDOMEN: Soft and nontender with normal bowel sounds. SKIN: Skin is clear with no lesions or rashes and otherwise unremarkable. NEUROLOGIC: Patient is alert and oriented x3. Cranial nerves II through XII are grossly intact. Motor and sensory are also intact. Normal speech, volume and content. Symmetrical smile. MUSCULOSKELETAL: Normal extremities with adequate strength and full range of motion. LYMPHATICS: No significant lymphadenopathy is noted PSYCHIATRIC: Normal psychiatric evaluation. Limitations: no limitations Course Vital Signs 05/15/17 16:00 Temperature 94.5 F L Pulse Rate 65 Respiratory 18 Rate Blood Pressure 186/83 O2 Sat by Pulse 97 Oximetry Medical Decision Making - Medical Decision Making EKG shows sinus bradycardia 50 bpm MN interval 146 QRS is under 4 QT interval 442 QTC is 414. EKG shows no ST segment elevation or depression or T wave abnormalities are noted - Lab Data Result diagrams: 05/15/17 16:15 05/15/17 16:15 Lab Results 05/15/17 05/15/17 Range/Units 16:15 16:15 WBC 8.4 (3.8-10.6) k/uL RBC 5.45 (4.30-5.90) m/uL Hgb 15.9 (13.0-17.5) gm/dL Hct 48.7 (39.0-53.0) % MCV 89.2 (80.0-100.0) fL MCH 29.1 (25.0-35.0) pg MCHC 32.6 (31.0-37.0) g/dL RDW 13.1 (11.5-15.5) % Plt Count 126 L (150-450) k/uL Neutrophils % 86 % Lymphocytes % 6 % Monocytes % 6 % Eosinophils % 0 % Basophils % 1 % Neutrophils # 7.2 (1.3-7.7) k/uL Lymphocytes # 0.5 L (1.0-4.8) k/uL Monocytes # 0.5 (0-1.0) k/uL Eosinophils # 0.0 (0-0.7) k/uL Basophils # 0.0 (0-0.2) k/uL Sodium 140 (137-145) mmol/L Potassium 4.3 (3.5-5.1) mmol/L Chloride 102 (98-107) mmol/L Carbon Dioxide 25 (22-30) mmol/L Anion Gap 13 mmol/L BUN 23 H (9-20) mg/dL Creatinine 1.39 H (0.66-1.25) mg/dL Est GFR (MDRD) Af Amer >60 (>60 ml/min/1.73 sqM) Est GFR (MDRD) Non-Af 55 (>60 ml/min/1.73 sqM) Glucose 161 H (74-99) mg/dL Calcium 10.0 (8.4-10.2) mg/dL Total Bilirubin 0.6 (0.2-1.3) mg/dL AST 23 (17-59) U/L ALT 34 (21-72) U/L Alkaline Phosphatase 66 (38-126) U/L Total Protein 7.3 (6.3-8.2) g/dL Albumin 4.5 (3.5-5.0) g/dL Disposition Clinical Impression: Hypoglycemia Disposition: HOME SELF-CARE Condition: Good Instructions: Hypoglycemia in a Person with Diabetes (ED) Referrals: Jim Acuna MD [Primary Care Provider] - 1-2 days Time of Disposition: 17:35
[2017-05-15 16:44] LABS: Basophils % (A) 1 %; Eosinophils % (A) 0 %; HCT 48.7 % (39.0-53.0); HGB 15.9 gm/dL (13.0-17.5); Lymphocytes # (A) 0.5 k/uL (1.0-4.8); Lymphocytes % (A) 6 %; MCH 29.1 pg (25.0-35.0); MCHC 32.6 g/dL (31.0-37.0); MCV 89.2 fL (80.0-100.0); Mean Platelet Volume 8.2; Monocytes # (A) 0.5 k/uL (0-1.0); Monocytes % (A) 6 %; Neutrophils # (A) 7.2 k/uL (1.3-7.7); Neutrophils % (A) 86 %; Platelet Count 126 k/uL (150-450); RBC 5.45 m/uL (4.30-5.90); RDW 13.1 % (11.5-15.5); WBC 8.4 k/uL (3.8-10.6)
[2017-05-15 16:59] LABS: ALT 34 U/L (21-72); AST 23 U/L (17-59); Albumin 4.5 g/dL (3.5-5.0); Alkaline Phosphatase 66 U/L (38-126); Anion Gap 13 mmol/L; Blood Urea Nitrogen 23 mg/dL (9-20); Carbon Dioxide 25 mmol/L (22-30); Chloride 102 mmol/L (98-107); Glucose 161 mg/dL (74-99); Potassium 4.3 mmol/L (3.5-5.1); Sodium 140 mmol/L (137-145); Total Bilirubin 0.6 mg/dL (0.2-1.3); Total Protein 7.3 g/dL (6.3-8.2)
[2017-05-15 18:33] VITALS: BP 149/75; PULSE 68; TEMP 97.6
[2017-05-16 11:10] LABS: Glucose,Whole Blood 186 mg/dL (75-99)
== END 2017-05-15 18:33 | disposition home or self-care (01) ==
LOC: EC 15:55
DX: E11.649 Type 2 diabetes mellitus with hypoglycemia without coma (principal); R00.1 Bradycardia, unspecified; H54.7 Unspecified visual loss; I10 Essential (primary) hypertension; Z79.4 Long term (current) use of insulin; Z79.899 Other long term (current) drug therapy; Z88.8 Allergy status to other drugs, medicaments and biological substances
CPT/HCPCS: 36415; 80053; 85025; 93005; 99284

== ENCOUNTER → 2017-07-12 | Outpatient (CLI) | payer MEDICARE, BC ==
[2017-07-12 08:26] LABS: Basophils % (A) 1 %; Eosinophils # (A) 0.2 k/uL (0-0.7); Eosinophils % (A) 3 %; HCT 47.1 % (39.0-53.0); HGB 15.1 gm/dL (13.0-17.5); Lymphocytes # (A) 0.9 k/uL (1.0-4.8); Lymphocytes % (A) 13 %; MCH 28.4 pg (25.0-35.0); MCHC 32.1 g/dL (31.0-37.0); MCV 88.2 fL (80.0-100.0); Mean Platelet Volume 8.9; Monocytes # (A) 0.6 k/uL (0-1.0); Monocytes % (A) 9 %; Neutrophils # (A) 4.8 k/uL (1.3-7.7); Neutrophils % (A) 72 %; Platelet Count 183 k/uL (150-450); RBC 5.34 m/uL (4.30-5.90); RDW 13.5 % (11.5-15.5); WBC 6.6 k/uL (3.8-10.6)
[2017-07-12 08:28] LABS: Appearance,Urine Clear (Clear); Bilirubin,Urine Negative (Negative); Blood,Urine Negative (Negative); Color,Urine Light Yellow; Glucose,Urine (UA) 3+ (Negative); Ketones,Urine Negative (Negative); Leukocyte Esterase,Urine Negative (Negative); Nitrite,Urine Negative (Negative); PH, Urine 6.5 (5.0-8.0); Protein,Urine Negative (Negative); Specific Gravity,Urine 1.005 (1.001-1.035); Urobilinogen,Urine <2.0 mg/dL (<2.0)
[2017-07-12 08:43] LABS: Albumin 4.3 g/dL (3.5-5.0); Bilirubin, Delta 0.4 mg/dL (0.0-0.2); Bilirubin,Unconjugated 0.4 mg/dL (0.0-1.1); Total Bilirubin 0.8 mg/dL (0.2-1.3); Total Protein 6.8 g/dL (6.3-8.2); Uric Acid 6.9 mg/dL (3.5-8.5)
[2017-07-12 08:48] LABS: Phosphorus 3.1 mg/dL (2.5-4.5); Potassium 5.1 mmol/L (3.5-5.1)
[2017-07-12 08:49] LABS: Magnesium 1.8 mg/dL (1.6-2.3)
[2017-07-12 16:38] LABS: Parathyroid Hormone Intact 164.3 pg/mL (14.0-72.0)
[2017-07-12 16:49] LABS: Iron Saturation 59.01 (15.00-50.00)
[2017-07-12 16:57] LABS: Vitamin D 25 Hydroxy 36.2 ng/mL (30.0-100.0)
== END | disposition home or self-care (01) ==
LOC: LABWHC1 07:50
PROVIDERS: ATTEND Nurse Practitioner Family
DX: Z48.22 Encounter for aftercare following kidney transplant (principal); N18.3 Chronic kidney disease, stage 3 (moderate); D64.9 Anemia, unspecified; N39.0 Urinary tract infection, site not specified; M10.9 Gout, unspecified; N25.81 Secondary hyperparathyroidism of renal origin; Z94.0 Kidney transplant status; Z79.899 Other long term (current) drug therapy
CPT/HCPCS: 36415; 80053; 80061; 80197; 81003; 82248; 82306; 82728; 83036; 83540; 83550; 83735; 83970; 84100; 84550; 85025; 87799

== ENCOUNTER → 2017-08-03 | Outpatient (CLI) | payer MEDICARE, BC ==
--- NOTE | 2017-08-03 15:39 | US ---
EXAMINATION TYPE: US kidneys/renal and bladder DATE OF EXAM: 08/03/2017 COMPARISON: NONE CLINICAL HISTORY: N18.3 CKD. 2012 renal transplant EXAM MEASUREMENTS: [place] Right Kidney: 7.5 x 3.9 x 3.8 cm [place] Left Kidney: 7.9 x 4.1 x 3.6 cm Right Pelvic Transplant: 10.6 x 4.5 x 5.5cm [place] Right Kidney: atrophic with thin and echogenic cortex, ?mild hydronephrosis [place] Left Kidney: atrophic with thin and echogenic cortex; hydronephrois; seen with a 8mm cortical cyst at the anterior mid pole Right Pelvic Transplant: appears wnl, no hydronephrosis, uniform color flow seen throughout Bladder: wnl Bilateral Jets seen: rt only IMPRESSION: 1. There is atrophy of the bilateral [place] kidneys with new mild hydronephrosis on the right an 8 mm cortical cyst on the left. 2. Unremarkable right pelvic renal transplant with no hydronephrosis or nephrolithiasis.
== END | disposition home or self-care (01) ==
LOC: RADUSWWP 14:39
PROVIDERS: ATTEND Internal Medicine Nephrology
DX: N26.1 Atrophy of kidney (terminal) (principal); N28.1 Cyst of kidney, acquired; N13.0 Hydronephrosis with ureteropelvic junction obstruction; N18.3 Chronic kidney disease, stage 3 (moderate); Z94.0 Kidney transplant status
CPT/HCPCS: 76770

== ENCOUNTER → 2017-10-09 | Outpatient (CLI) | payer MEDICARE, BC ==
[2017-10-09 08:44] LABS: Appearance,Urine Clear (Clear); Bilirubin,Urine Negative (Negative); Blood,Urine Negative (Negative); Color,Urine Light Yellow; Glucose,Urine (UA) Negative (Negative); Ketones,Urine Negative (Negative); Leukocyte Esterase,Urine Negative (Negative); Nitrite,Urine Negative (Negative); PH, Urine 6.5 (5.0-8.0); Protein,Urine Negative (Negative); Specific Gravity,Urine 1.006 (1.001-1.035); Urobilinogen,Urine <2.0 mg/dL (<2.0)
[2017-10-09 09:17] LABS: Albumin 3.9 g/dL (3.5-5.0); Magnesium 1.7 mg/dL (1.6-2.3); Phosphorus 3.2 mg/dL (2.5-4.5); Uric Acid 7.7 mg/dL (3.5-8.5)
[2017-10-09 09:28] LABS: Basophils % (A) 1 %; Eosinophils # (A) 0.1 k/uL (0-0.7); Eosinophils % (A) 2 %; HCT 45.6 % (39.0-53.0); HGB 14.7 gm/dL (13.0-17.5); Lymphocytes # (A) 1.8 k/uL (1.0-4.8); Lymphocytes % (A) 30 %; MCHC 32.3 g/dL (31.0-37.0); MCV 89.8 fL (80.0-100.0); Mean Platelet Volume 9.3; Monocytes # (A) 0.5 k/uL (0-1.0); Monocytes % (A) 8 %; Neutrophils # (A) 3.5 k/uL (1.3-7.7); Neutrophils % (A) 58 %; Platelet Count 165 k/uL (150-450); RBC 5.07 m/uL (4.30-5.90); RDW 13.8 % (11.5-15.5)
[2017-10-09 15:59] LABS: Iron Saturation 77.51 (15.00-50.00)
[2017-10-09 16:06] LABS: Parathyroid Hormone Intact 123.9 pg/mL (14.0-72.0)
[2017-10-09 16:09] LABS: Vitamin D 25 Hydroxy 54.4 ng/mL (30.0-100.0)
== END | disposition home or self-care (01) ==
LOC: LABWHC1 08:11
PROVIDERS: ATTEND Nurse Practitioner Family
DX: N18.3 Chronic kidney disease, stage 3 (moderate) (principal); D63.1 Anemia in chronic kidney disease; E21.3 Hyperparathyroidism, unspecified; E55.9 Vitamin D deficiency, unspecified; M10.9 Gout, unspecified; N39.0 Urinary tract infection, site not specified; N25.81 Secondary hyperparathyroidism of renal origin
CPT/HCPCS: 36415; 81003; 82040; 82306; 82728; 83540; 83550; 83735; 83970; 84100; 84550; 85025

== ENCOUNTER 2017-11-17 09:57 | Emergency (ER) | payer MEDICARE, BC ==
[2017-11-17 10:01] VITALS: BP 138/81; PULSE 74; RESP 16; TEMP 98.8
--- NOTE | 2017-11-17 10:23 | ED ---
General Adult HPI - General Chief complaint: Upper Respiratory Infection Stated complaint: cough, sore throat Time Seen by Provider: 11/17/17 10:06 Source: patient, RN notes reviewed Mode of arrival: ambulatory Limitations: no limitations - History of Present Illness Initial comments: Patient reports 47-year-old male presented to the emergency room today with a chief complaint of cough congestion over the last week. He doesn't that it started with a sore throat. States it progressed to a cough. States he has sputum production it's yellow in color. Patient states came to the hospital today to rule out possible bacterial infection. Denies any other complaints or symptoms. Patient denies any recent fever, chills, shortness of breath, chest pain, back pain, abdominal pain, nausea or vomiting, numbness or tingling, dysuria or hematuria, constipation or diarrhea, headaches or visual changes, or any other complaints. - Related Data Home Medications Medication Instructions Recorded Confirmed Insulin Aspart [NovoLOG] See Protocol SQ DAILY 06/14/14 11/17/17 Metoprolol Tartrate [Lopressor] 100 mg PO BID 06/14/14 11/17/[address] [Myfortic] 180 mg PO BID 06/14/14 11/17/17 Tamsulosin HCl [Flomax] 0.4 mg PO DAILY 06/14/14 11/17/17 amLODIPine [Norvasc] 5 mg PO BID 06/14/14 11/17/17 hydrALAZINE HCL [Apresoline] 100 mg PO TID 06/14/14 11/17/17 oxyCODONE-APAP 5-325MG [Percocet 1 tab PO Q6HR PRN 06/14/14 11/17/17 5-325] predniSONE 10 mg PO DAILY 06/14/14 11/17/17 Glucagon Emergency Kit 1 mg SQ ONCE 09/10/14 11/17/17 Tacrolimus [Prograf] 3 mg PO Q12H 11/05/15 11/17/17 cloNIDine HCL [Catapres] 0.1 mg PO HS 11/05/15 11/17/17 Insulin Detemir [Levemir Flextouch] 38 unit SQ DAILY 11/26/16 11/17/17 L.acidoph,Paracasei, B.lactis 1 cap PO DAILY 09/10/17 09/01/18 [Probiotic] Multivitamins, Thera [Multivitamin 1 tab PO DAILY 11/26/16 11/17/17 (formulary)] [place]-3 Fatty Acids/Fish Oil [Fish 1 cap PO DAILY 11/26/16 11/17/17 Oil 1,000 mg Softgel] Sodium Polystyrene Sulfon/Sorb 15 gm PO Q30D 01/23/17 11/17/17 [Kionex 15 gm/60 ml Suspension] Allergies Allergy/AdvReac Type Severity Reaction Status Date / Time bisoprolol fumarate Allergy Nausea & Verified 11/17/17 10:01 [From Ziac] Vomiting hydrochlorothiazide Allergy Nausea & Verified 11/17/17 10:01 [From Ziac] Vomiting Review of Systems ROS Statement: Those systems with pertinent positive or pertinent negative responses have been documented in the HPI. ROS Other: All systems not noted in ROS Statement are negative. Past Medical History Past Medical History: Diabetes Mellitus, Hypertension Additional Past Medical History / Comment(s): blind, was on dialysis prior to kidney transplant, shunt left arm History of Any Multi-Drug Resistant Organisms: VRE Date of last positivie culture/infection: 06/15/2014 MDRO Source:: Urine-Enterococcus faecium Additional Past Surgical History / Comment(s): Kidney transplant 2011, eye sx Past Psychological History: No Psychological Hx Reported Smoking Status: Never smoker Past Alcohol Use History: None Reported Past Drug Use History: None Reported General Exam - General Exam Comments Initial Comments: General: The patient is awake and alert, in no distress, and does not appear acutely ill. Ears, nose, mouth and throat: There are moist mucous membranes and no oral lesions. Neck: The neck is supple. Cardiovascular: There is a regular rate and rhythm. No murmur, rub or gallop is appreciated. Respiratory: Lungs are clear to auscultation, respirations are non-labored, breath sounds are equal. No wheezes, stridor, rales, or rhonchi. Musculoskeletal: Normal ROM, no tenderness. Neurological: A&O x 3. CN II-XII intact, There are no obvious motor or sensory deficits. Coordination appears grossly intact. Speech is normal. Skin: Skin is warm and dry and no rashes or lesions are noted. Psychiatric: Cooperative, appropriate mood & affect, normal judgment. Limitations: no limitations Course Vital Signs 11/17/17 09:59 Temperature 98.8 F Pulse Rate 74 Respiratory 16 Rate Blood Pressure 138/81 O2 Sat by Pulse 99 Oximetry Medical Decision Making - Medical Decision Making Patient's x-ray reviewed shows no acute abnormality. No sign of pneumonia. Patient advised most likely viral illness. Advised continue [id number] medications. Advised to return if symptoms increase worsen or for any concerns. Disposition Clinical Impression: Upper respiratory infection Disposition: HOME SELF-CARE Condition: Good Instructions: Upper Respiratory Infection (ED) Additional Instructions: Please continue waig-pgk-ibfbuol medications as discussed. Please return if symptoms increase or worsen or for any other concerns. Is patient prescribed a controlled substance at d/c from ED?: No Referrals: Jim Acuna MD [Primary Care Provider] - 1-2 days Time of Disposition: 11:00
--- NOTE | 2017-11-17 10:54 | XR ---
EXAMINATION TYPE: XR chest 2V DATE OF EXAM: 11/17/2017 COMPARISON: None HISTORY: 47-year-old male with chronic cough TECHNIQUE: PA and lateral views FINDINGS: Heart normal size. Aorta and pulmonary vasculature within normal limits. Some strandy atelectasis in the lower lungs. No consolidation or pleural effusion. IMPRESSION: No acute cardiopulmonary process.
== END 2017-11-17 11:35 | disposition home or self-care (01) ==
LOC: EC 09:57
DX: J06.9 Acute upper respiratory infection, unspecified (principal); E11.9 Type 2 diabetes mellitus without complications; I10 Essential (primary) hypertension; Z99.2 Dependence on renal dialysis; Z94.0 Kidney transplant status; Z79.4 Long term (current) use of insulin; Z79.52 Long term (current) use of systemic steroids; Z79.899 Other long term (current) drug therapy; Z88.8 Allergy status to other drugs, medicaments and biological substances
CPT/HCPCS: 71046; 99283

== ENCOUNTER → 2018-01-07 | Outpatient (CLI) | payer MEDICARE, BC ==
[2018-01-07 08:57] LABS: Appearance,Urine Clear (Clear); Bilirubin,Urine Negative (Negative); Blood,Urine Negative (Negative); Color,Urine Light Yellow; Glucose,Urine (UA) Negative (Negative); Ketones,Urine Negative (Negative); Leukocyte Esterase,Urine Negative (Negative); Nitrite,Urine Negative (Negative); Protein,Urine Negative (Negative); Specific Gravity,Urine 1.007 (1.001-1.035); Urobilinogen,Urine <2.0 mg/dL (<2.0)
[2018-01-07 17:13] LABS: Iron Saturation 79.49 (15.00-50.00)
[2018-01-07 17:22] LABS: Vitamin D 25 Hydroxy 40.8 ng/mL (30.0-100.0)
[2018-01-07 17:47] LABS: Parathyroid Hormone Intact 147.2 pg/mL (14.0-72.0)
== END | disposition home or self-care (01) ==
LOC: LABWHC1 07:51
PROVIDERS: ATTEND Internal Medicine Nephrology
DX: E55.9 Vitamin D deficiency, unspecified (principal); N18.3 Chronic kidney disease, stage 3 (moderate); D63.1 Anemia in chronic kidney disease; M10.9 Gout, unspecified; N39.0 Urinary tract infection, site not specified; Z94.0 Kidney transplant status
CPT/HCPCS: 36415; 81003; 82306; 82728; 83540; 83550; 83970

== ENCOUNTER → 2018-07-06 | Outpatient (CLI) | payer MEDICARE, BC ==
[2018-07-06 09:54] LABS: Basophils % (A) 1 %; Eosinophils # (A) 0.1 k/uL (0-0.7); Eosinophils % (A) 1 %; HCT 46.5 % (39.0-53.0); HGB 15.3 gm/dL (13.0-17.5); Lymphocytes # (A) 0.6 k/uL (1.0-4.8); Lymphocytes % (A) 8 %; MCH 29.9 pg (25.0-35.0); MCHC 32.9 g/dL (31.0-37.0); MCV 90.8 fL (80.0-100.0); Mean Platelet Volume 8.6; Monocytes # (A) 0.5 k/uL (0-1.0); Monocytes % (A) 7 %; Neutrophils # (A) 5.7 k/uL (1.3-7.7); Neutrophils % (A) 81 %; Platelet Count 151 k/uL (150-450); RBC 5.12 m/uL (4.30-5.90); RDW 13.7 % (11.5-15.5)
[2018-07-06 10:19] LABS: Appearance,Urine Clear (Clear); Bilirubin,Urine Negative (Negative); Blood,Urine Negative (Negative); Color,Urine Light Yellow; Glucose,Urine (UA) Negative (Negative); Ketones,Urine Negative (Negative); Leukocyte Esterase,Urine Negative (Negative); Nitrite,Urine Negative (Negative); Protein,Urine Negative (Negative); Specific Gravity,Urine 1.009 (1.001-1.035); Urobilinogen,Urine <2.0 mg/dL (<2.0)
[2018-07-06 17:02] LABS: Iron Saturation 75.83 (15.00-50.00)
[2018-07-06 17:13] LABS: Vitamin D 25 Hydroxy 45.6 ng/mL (30.0-100.0)
[2018-07-06 17:17] LABS: Magnesium 1.6 mg/dL (1.5-2.4); Phosphorus 2.4 mg/dL (2.4-5.1); Uric Acid 8.5 mg/dL (3.7-8.7)
[2018-07-06 17:55] LABS: Parathyroid Hormone Intact 91.4 pg/mL (14.0-72.0)
== END | disposition home or self-care (01) ==
LOC: LABWHC1 08:39
PROVIDERS: ATTEND Nurse Practitioner Family
DX: N18.3 Chronic kidney disease, stage 3 (moderate) (principal); E55.9 Vitamin D deficiency, unspecified; M10.9 Gout, unspecified; N39.0 Urinary tract infection, site not specified; D63.1 Anemia in chronic kidney disease; Z94.0 Kidney transplant status
CPT/HCPCS: 36415; 80197; 81003; 82306; 82728; 83540; 83550; 83735; 83970; 84100; 84550; 85025

== ENCOUNTER → 2018-10-10 | Outpatient (CLI) | payer MEDICARE, BC ==
[2018-10-10 10:11] LABS: Appearance,Urine Clear (Clear); Bilirubin,Urine Negative (Negative); Blood,Urine Negative (Negative); Color,Urine Light Yellow; Glucose,Urine (UA) Negative (Negative); Ketones,Urine Negative (Negative); Leukocyte Esterase,Urine Negative (Negative); Nitrite,Urine Negative (Negative); Protein,Urine Negative (Negative); Specific Gravity,Urine 1.006 (1.001-1.035); Urobilinogen,Urine <2.0 mg/dL (<2.0)
[2018-10-10 16:05] LABS: Iron Saturation 53.57 (15.00-50.00)
[2018-10-10 17:30] LABS: Creatinine,Urine Random 30.2 mg/dL
[2018-10-10 18:50] LABS: Total Protein,Urine Random 5.2 mg/dL (0.0-13.5)
== END ==
LOC: LABWHC1 07:47
PROVIDERS: ATTEND Internal Medicine Nephrology
DX: Z48.22 Encounter for aftercare following kidney transplant (principal); Z94.0 Kidney transplant status; E55.9 Vitamin D deficiency, unspecified; N25.81 Secondary hyperparathyroidism of renal origin; M10.9 Gout, unspecified; Z79.899 Other long term (current) drug therapy; D64.9 Anemia, unspecified; N39.0 Urinary tract infection, site not specified; R80.9 Proteinuria, unspecified
CPT/HCPCS: 36415; 81003; 82040; 82306; 82570; 82728; 83540; 83550; 83970; 84156

== ENCOUNTER → 2019-01-10 | Outpatient (CLI) | payer MEDICARE, BC ==
[2019-01-10 08:42] LABS: Basophils % (A) 1 %; Eosinophils % (A) 1 %; HCT 45.7 % (39.0-53.0); HGB 14.6 gm/dL (13.0-17.5); Lymphocytes % (A) 5 %; MCH 29.2 pg (25.0-35.0); MCV 91.2 fL (80.0-100.0); Monocytes % (A) 6 %; Neutrophils % (A) 86 %; Platelet Count 138 k/uL (150-450); WBC 6.7 k/uL (3.8-10.6)
[2019-01-10 08:43] LABS: Basophils # (A) 0.1 k/uL (0-0.2); Eosinophils # (A) 0.1 k/uL (0-0.7); Lymphocytes # (A) 0.3 k/uL (1.0-4.8); Monocytes # (A) 0.4 k/uL (0-1.0); Neutrophils # (A) 5.8 k/uL (1.3-7.7)
[2019-01-10 09:14] LABS: Appearance,Urine Clear (Clear); Bilirubin,Urine Negative (Negative); Blood,Urine Negative (Negative); Color,Urine Light Yellow; Glucose,Urine (UA) Negative (Negative); Ketones,Urine Negative (Negative); Leukocyte Esterase,Urine Negative (Negative); Nitrite,Urine Negative (Negative); PH, Urine 6.5 (5.0-8.0); Protein,Urine Negative (Negative); Specific Gravity,Urine 1.005 (1.001-1.035); Urobilinogen,Urine <2.0 mg/dL (<2.0)
[2019-01-10 16:49] LABS: % Iron Saturation 87.56 (15.00-50.00); Chol/HDL Ratio 3.3; Magnesium 1.6 mg/dL (1.5-2.4); Phosphorus 1.7 mg/dL (2.4-5.1)
[2019-01-10 16:59] LABS: Uric Acid 7.5 mg/dL (3.7-8.7)
[2019-01-10 17:08] LABS: Ferritin 166.6 ng/mL (22.0-322.0)
[2019-01-10 18:09] LABS: Creatinine,Urine Random 33.5 mg/dL
[2019-01-10 19:16] LABS: Total Protein,Urine Random <4.0 mg/dL (0.0-13.5)
== END | disposition home or self-care (01) ==
LOC: LABWHC1 07:41
PROVIDERS: ATTEND Nurse Practitioner Family
DX: N39.0 Urinary tract infection, site not specified (principal); Z94.0 Kidney transplant status; M10.9 Gout, unspecified; D64.9 Anemia, unspecified; N25.81 Secondary hyperparathyroidism of renal origin; E55.9 Vitamin D deficiency, unspecified; R80.9 Proteinuria, unspecified
CPT/HCPCS: 36415; 80061; 80197; 81003; 82040; 82306; 82570; 82728; 83540; 83550; 83735; 83970; 84100; 84156; 84550; 85025

== ENCOUNTER → 2019-04-18 | Outpatient (CLI) | payer MEDICARE, BC ==
[2019-04-18 08:51] LABS: Appearance,Urine Clear (Clear); Bilirubin,Urine Negative (Negative); Blood,Urine Negative (Negative); Color,Urine Light Yellow; Glucose,Urine (UA) 3+ (Negative); Ketones,Urine Negative (Negative); Leukocyte Esterase,Urine Negative (Negative); Nitrite,Urine Negative (Negative); PH, Urine 6.5 (5.0-8.0); Protein,Urine Negative (Negative); Specific Gravity,Urine 1.006 (1.001-1.035); Urobilinogen,Urine <2.0 mg/dL (<2.0)
[2019-04-18 09:11] LABS: Protein/Creatinine Ratio,Urine 0.5
[2019-04-18 16:54] LABS: % Iron Saturation 75.57 (15.00-50.00)
[2019-04-18 17:02] LABS: Ferritin 100.3 ng/mL (22.0-322.0)
== END | disposition home or self-care (01) ==
LOC: LABWHC1 07:52
PROVIDERS: ATTEND Nurse Practitioner Family
DX: N25.81 Secondary hyperparathyroidism of renal origin (principal); N39.0 Urinary tract infection, site not specified; D64.9 Anemia, unspecified; M10.9 Gout, unspecified; E55.9 Vitamin D deficiency, unspecified; R80.9 Proteinuria, unspecified; Z94.0 Kidney transplant status
CPT/HCPCS: 36415; 81003; 82570; 82728; 83540; 83550; 83970; 84156

== ENCOUNTER → 2019-07-14 | Outpatient (CLI) | payer MEDICARE, BC ==
[2019-07-14 08:53] LABS: Appearance,Urine Clear (Clear); Bilirubin,Urine Negative (Negative); Blood,Urine Negative (Negative); Color,Urine Light Yellow; Glucose,Urine (UA) Trace (Negative); Ketones,Urine Negative (Negative); Leukocyte Esterase,Urine Negative (Negative); Nitrite,Urine Negative (Negative); PH, Urine 6.5 (5.0-8.0); Protein,Urine Negative (Negative); Specific Gravity,Urine 1.007 (1.001-1.035); Urobilinogen,Urine <2.0 mg/dL (<2.0)
[2019-07-14 08:55] LABS: Basophils % (A) 1 %; Eosinophils # (A) 0.1 k/uL (0-0.7); Eosinophils % (A) 1 %; HGB 14.9 gm/dL (13.0-17.5); Lymphocytes # (A) 0.4 k/uL (1.0-4.8); Lymphocytes % (A) 6 %; MCH 29.4 pg (25.0-35.0); MCHC 32.4 g/dL (31.0-37.0); MCV 90.9 fL (80.0-100.0); Mean Platelet Volume 9.7; Monocytes # (A) 0.6 k/uL (0-1.0); Monocytes % (A) 9 %; Neutrophils # (A) 5.8 k/uL (1.3-7.7); Neutrophils % (A) 83 %; Platelet Count 125 k/uL (150-450); RBC 5.06 m/uL (4.30-5.90); RDW 13.5 % (11.5-15.5)
[2019-07-14 09:09] LABS: Protein/Creatinine Ratio,Urine 0.409
[2019-07-14 16:01] LABS: % Iron Saturation 69.82 (15.00-50.00); African American GFR (CKD) 58.2 (60.0-200.0); Albumin 3.9 g/dL (3.80-4.90); Albumin/Globulin Ratio 1.95 (1.60-3.17); Anion Gap 7.6 mmol/L (4.00-12.00); BUN/Creat Ratio 14.38 Ratio (12.00-20.00); Calcium 9.5 mg/dL (8.7-10.3); Carbon Dioxide 31.4 mmol/L (21.6-31.8); Magnesium 1.6 mg/dL (1.5-2.4); Non-African American GFR(CKD) 50.2 (60.0-200.0); Phosphorus 2.8 mg/dL (2.4-5.1); Potassium 4.7 mmol/L (3.5-5.5); Total Bilirubin 0.8 mg/dL (0.3-1.2); Total Protein 5.9 g/dL (6.2-8.2); Uric Acid 7.3 mg/dL (3.7-8.7)
[2019-07-14 16:10] LABS: Ferritin 122.3 ng/mL (22.0-322.0)
== END | disposition home or self-care (01) ==
LOC: LABWHC1 08:17
PROVIDERS: ATTEND Internal Medicine Nephrology
DX: N39.0 Urinary tract infection, site not specified (principal); E21.3 Hyperparathyroidism, unspecified; M10.9 Gout, unspecified; E55.9 Vitamin D deficiency, unspecified; D64.9 Anemia, unspecified; Z94.0 Kidney transplant status
CPT/HCPCS: 36415; 80053; 80197; 81003; 82306; 82570; 82728; 83540; 83550; 83735; 83970; 84100; 84156; 84550; 85025

== ENCOUNTER → 2019-09-08 | Outpatient (CLI) | payer MEDICARE, BC ==
[2019-09-08 09:17] LABS: Basophils # (A) 0.1 k/uL (0-0.2); Basophils % (A) 1 %; Eosinophils # (A) 0.1 k/uL (0-0.7); Eosinophils % (A) 2 %; HCT 46.4 % (39.0-53.0); HGB 15.5 gm/dL (13.0-17.5); Lymphocytes # (A) 0.5 k/uL (1.0-4.8); Lymphocytes % (A) 7 %; MCH 30.3 pg (25.0-35.0); MCHC 33.3 g/dL (31.0-37.0); Mean Platelet Volume 9.1; Monocytes # (A) 0.6 k/uL (0-1.0); Monocytes % (A) 9 %; Neutrophils % (A) 81 %; Platelet Count 147 k/uL (150-450); RDW 13.6 % (11.5-15.5); WBC 7.4 k/uL (3.8-10.6)
[2019-09-08 16:17] LABS: % Iron Saturation 81.39 (15.00-50.00); African American GFR (CKD) 62.9 (60.0-200.0); Albumin 4.1 g/dL (3.80-4.90); Anion Gap 6.8 mmol/L (4.00-12.00); BUN/Creat Ratio 14.67 Ratio (12.00-20.00); Calcium 9.3 mg/dL (8.7-10.3); Carbon Dioxide 30.2 mmol/L (21.6-31.8); Magnesium 1.6 mg/dL (1.5-2.4); Non-African American GFR(CKD) 54.3 (60.0-200.0); Phosphorus 3.1 mg/dL (2.4-5.1); Potassium 4.5 mmol/L (3.5-5.5); Uric Acid 7.4 mg/dL (3.7-8.7)
[2019-09-08 16:25] LABS: Ferritin 165.2 ng/mL (22.0-322.0)
== END | disposition home or self-care (01) ==
LOC: LABWHC1 08:20
PROVIDERS: ATTEND Internal Medicine Nephrology
DX: Z94.0 Kidney transplant status (principal)
CPT/HCPCS: 36415; 80048; 80197; 82040; 82728; 83540; 83550; 83735; 83970; 84100; 84550; 85025

== ENCOUNTER → 2019-10-10 | Outpatient (CLI) | payer MEDICARE, BC ==
[2019-10-10 08:54] LABS: Appearance,Urine Clear (Clear); Bilirubin,Urine Negative (Negative); Blood,Urine Negative (Negative); Color,Urine Light Yellow; Glucose,Urine (UA) Negative (Negative); Ketones,Urine Negative (Negative); Leukocyte Esterase,Urine Negative (Negative); Nitrite,Urine Negative (Negative); PH, Urine 6.5 (5.0-8.0); Protein,Urine Negative (Negative); Specific Gravity,Urine 1.004 (1.001-1.035); Urobilinogen,Urine <2.0 mg/dL (<2.0)
[2019-10-10 16:51] LABS: % Iron Saturation 76.29 (15.00-50.00)
[2019-10-10 16:59] LABS: Ferritin 133.1 ng/mL (22.0-322.0)
[2019-10-10 19:15] LABS: Creatinine,Urine Random 24.8 mg/dL
[2019-10-10 19:24] LABS: Total Protein,Urine Random <4.0 mg/dL (0.0-13.5)
== END | disposition home or self-care (01) ==
LOC: LABWHC1 07:53
DX: E55.9 Vitamin D deficiency, unspecified (principal); E21.3 Hyperparathyroidism, unspecified; N39.0 Urinary tract infection, site not specified; R80.9 Proteinuria, unspecified; D64.9 Anemia, unspecified; Z94.0 Kidney transplant status
CPT/HCPCS: 36415; 81003; 82040; 82306; 82570; 82728; 83540; 83550; 83970; 84156

== ENCOUNTER → 2020-01-13 | Outpatient (CLI) | payer MEDICARE, BC ==
[2020-01-13 09:30] LABS: Basophils % (A) 1 %; Eosinophils # (A) 0.1 k/uL (0-0.7); Eosinophils % (A) 2 %; HCT 49.2 % (39.0-53.0); HGB 15.3 gm/dL (13.0-17.5); Lymphocytes # (A) 0.7 k/uL (1.0-4.8); Lymphocytes % (A) 9 %; MCV 93.4 fL (80.0-100.0); Mean Platelet Volume 9.1; Monocytes # (A) 0.6 k/uL (0-1.0); Monocytes % (A) 8 %; Neutrophils # (A) 5.5 k/uL (1.3-7.7); Neutrophils % (A) 79 %; Platelet Count 148 k/uL (150-450); RBC 5.27 m/uL (4.30-5.90); RDW 13.7 % (11.5-15.5); WBC 6.9 k/uL (3.8-10.6)
[2020-01-13 09:38] LABS: Protein/Creatinine Ratio,Urine 0.318
[2020-01-13 09:56] LABS: Appearance,Urine Clear (Clear); Bilirubin,Urine Negative (Negative); Blood,Urine Negative (Negative); Color,Urine Light Yellow; Glucose,Urine (UA) Negative (Negative); Ketones,Urine Negative (Negative); Leukocyte Esterase,Urine Negative (Negative); Nitrite,Urine Negative (Negative); PH, Urine 6.5 (5.0-8.0); Protein,Urine Negative (Negative); Specific Gravity,Urine 1.008 (1.001-1.035); Urobilinogen,Urine <2.0 mg/dL (<2.0)
[2020-01-13 17:27] LABS: Magnesium 1.6 mg/dL (1.5-2.4); Phosphorus 2.9 mg/dL (2.4-5.1); Uric Acid 7.6 mg/dL (3.7-8.7)
[2020-01-13 17:35] LABS: Ferritin 140.4 ng/mL (22.0-322.0)
== END | disposition home or self-care (01) ==
LOC: LABWHC1 08:07
PROVIDERS: ATTEND Nurse Practitioner Family
DX: E55.9 Vitamin D deficiency, unspecified (principal); N25.81 Secondary hyperparathyroidism of renal origin; M10.9 Gout, unspecified; N39.0 Urinary tract infection, site not specified; D63.1 Anemia in chronic kidney disease; R80.9 Proteinuria, unspecified; Z94.0 Kidney transplant status
CPT/HCPCS: 36415; 80197; 81003; 82306; 82570; 82728; 83540; 83550; 83735; 83970; 84100; 84156; 84550; 85025

== ENCOUNTER → 2020-04-12 | Outpatient (CLI) | payer MEDICARE, BC ==
[2020-04-12 08:53] LABS: Basophils % (A) 1 %; Eosinophils # (A) 0.1 k/uL (0-0.7); Eosinophils % (A) 1 %; HCT 47.1 % (39.0-53.0); Lymphocytes # (A) 0.4 k/uL (1.0-4.8); Lymphocytes % (A) 6 %; MCH 28.6 pg (25.0-35.0); MCHC 31.8 g/dL (31.0-37.0); Mean Platelet Volume 9.4; Monocytes # (A) 0.5 k/uL (0-1.0); Monocytes % (A) 6 %; Neutrophils # (A) 6.5 k/uL (1.3-7.7); Neutrophils % (A) 85 %; Platelet Count 163 k/uL (150-450); RBC 5.23 m/uL (4.30-5.90); RDW 13.8 % (11.5-15.5); WBC 7.6 k/uL (3.8-10.6)
[2020-04-12 08:54] LABS: Appearance,Urine Clear (Clear); Bilirubin,Urine Negative (Negative); Blood,Urine Negative (Negative); Color,Urine Light Yellow; Glucose,Urine (UA) Negative (Negative); Ketones,Urine Negative (Negative); Leukocyte Esterase,Urine Negative (Negative); Nitrite,Urine Negative (Negative); PH, Urine 6.5 (5.0-8.0); Protein,Urine Negative (Negative); Specific Gravity,Urine 1.007 (1.001-1.035); Urobilinogen,Urine <2.0 mg/dL (<2.0)
[2020-04-12 15:58] LABS: % Iron Saturation 70.8 (15.00-50.00); Albumin 4.2 g/dL (3.80-4.90); Magnesium 1.4 mg/dL (1.5-2.4); Phosphorus 2.8 mg/dL (2.4-5.1); Uric Acid 7.2 mg/dL (3.7-8.7)
[2020-04-12 16:07] LABS: Ferritin 136.1 ng/mL (22.0-322.0)
[2020-04-12 19:56] LABS: Urine Creatinine 47.7 mg/dL
== END | disposition home or self-care (01) ==
LOC: LABWHC1 07:54
PROVIDERS: ATTEND Nurse Practitioner Family
DX: Z48.22 Encounter for aftercare following kidney transplant (principal); Z94.0 Kidney transplant status
CPT/HCPCS: 36415; 80197; 81003; 82040; 82043; 82306; 82570; 82728; 83540; 83550; 83735; 83970; 84100; 84550; 85025

== ENCOUNTER → 2020-07-16 | Outpatient (CLI) | payer MEDICARE, BC ==
[2020-07-16 09:51] LABS: Appearance,Urine Clear (Clear); Bilirubin,Urine Negative (Negative); Blood,Urine Negative (Negative); Color,Urine Colorless; Glucose,Urine (UA) Negative (Negative); Ketones,Urine Negative (Negative); Leukocyte Esterase,Urine Negative (Negative); Nitrite,Urine Negative (Negative); Protein,Urine Negative (Negative); Specific Gravity,Urine 1.005 (1.001-1.035); Urobilinogen,Urine <2.0 mg/dL (<2.0)
[2020-07-16 10:15] LABS: Creatinine,Urine Random 35.3 mg/dL; Protein/Creatinine Ratio,Urine 0.482
[2020-07-16 22:55] LABS: % Iron Saturation 71.93 (15.00-50.00)
[2020-07-16 23:04] LABS: Ferritin 132.6 ng/mL (22.0-322.0)
== END | disposition home or self-care (01) ==
LOC: LABWHC1 07:28
PROVIDERS: ATTEND Nurse Practitioner Family
DX: M10.9 Gout, unspecified (principal); N25.81 Secondary hyperparathyroidism of renal origin; N39.0 Urinary tract infection, site not specified; D64.9 Anemia, unspecified; E55.9 Vitamin D deficiency, unspecified; R80.9 Proteinuria, unspecified; Z94.0 Kidney transplant status
CPT/HCPCS: 36415; 81003; 82306; 82570; 82728; 83540; 83550; 83970; 84156

== ENCOUNTER → 2020-10-15 | Outpatient (CLI) | payer MEDICARE, BC ==
[2020-10-15 09:31] LABS: Appearance,Urine Clear (Clear); Bilirubin,Urine Negative (Negative); Blood,Urine Negative (Negative); Color,Urine Light Yellow; Glucose,Urine (UA) Negative (Negative); Ketones,Urine Negative (Negative); Leukocyte Esterase,Urine Negative (Negative); Nitrite,Urine Negative (Negative); PH, Urine 6.5 (5.0-8.0); Protein,Urine Negative (Negative); Specific Gravity,Urine 1.004 (1.001-1.035); Urobilinogen,Urine <2.0 mg/dL (<2.0)
[2020-10-15 09:41] LABS: Creatinine,Urine Random 23.8 mg/dL; Protein/Creatinine Ratio,Urine 0.714
[2020-10-15 19:48] LABS: % Iron Saturation 68.75 (15.00-50.00)
[2020-10-15 19:56] LABS: Ferritin 157.3 ng/mL (22.0-322.0)
== END | disposition home or self-care (01) ==
LOC: LABWHC1 07:30
PROVIDERS: ATTEND Internal Medicine Nephrology
DX: Z48.22 Encounter for aftercare following kidney transplant (principal); Z12.79 Encounter for screening for malignant neoplasm of other genitourinary organs; Z79.899 Other long term (current) drug therapy; Z94.0 Kidney transplant status
CPT/HCPCS: 36415; 81003; 82306; 82570; 82728; 83540; 83550; 83970; 84156

== ENCOUNTER → 2021-01-14 | Outpatient (CLI) | payer MEDICARE, BC ==
[2021-01-14 10:13] LABS: Appearance,Urine Clear (Clear); Bilirubin,Urine Negative (Negative); Blood,Urine Negative (Negative); Color,Urine Light Yellow; Glucose,Urine (UA) Negative (Negative); Ketones,Urine Negative (Negative); Leukocyte Esterase,Urine Negative (Negative); Nitrite,Urine Negative (Negative); Protein,Urine Negative (Negative); Specific Gravity,Urine 1.004 (1.001-1.035); Urobilinogen,Urine <2.0 mg/dL (<2.0)
[2021-01-14 10:39] LABS: Creatinine,Urine Random 29.7 mg/dL; Protein/Creatinine Ratio,Urine 0.572
[2021-01-14 12:30] LABS: % Iron Saturation 75.6 (15.00-50.00)
== END | disposition home or self-care (01) ==
LOC: LABWHC1 07:53
PROVIDERS: ATTEND Nurse Practitioner Family
DX: N18.31 Chronic kidney disease, stage 3a (principal); E55.9 Vitamin D deficiency, unspecified; Z94.0 Kidney transplant status; N25.81 Secondary hyperparathyroidism of renal origin; M10.9 Gout, unspecified; N39.0 Urinary tract infection, site not specified; D64.9 Anemia, unspecified
CPT/HCPCS: 36415; 81003; 82306; 82570; 82728; 83540; 83550; 83970; 84156

== ENCOUNTER → 2021-02-16 | Outpatient (CLI) | payer MEDICARE, BC ==
--- NOTE | 2021-02-16 15:59 | US ---
EXAMINATION TYPE: US kidneys/renal and bladder DATE OF EXAM: 02/16/2021 COMPARISON: US CLINICAL HISTORY: CKD Stage 3 N18.3. Renal failure with right renal transplant EXAM MEASUREMENTS: Right Kidney: 7.6 x 3.8 x 3.8 cm Left Kidney: 7.4 x 4.3 x 3.4 cm RLQ Right renal transplant= 10.9 x 4.6 x 4.6 cm Right Kidney: [place] kidney atrophic Left Kidney: [place] kidney atrophic Transplant kidney= located within RLQ, appeared wnl with venous and arterial flow present Bladder: wnl Bilateral Jets seen: No IMPRESSION: 1. Normal-appearing right transplant kidney with good flow. No hydronephrosis evident. 2. Atrophic bilateral [place] kidneys
== END | disposition home or self-care (01) ==
LOC: RADUSWWP 13:30
PROVIDERS: ATTEND Internal Medicine Nephrology
DX: N18.31 Chronic kidney disease, stage 3a (principal); Z94.0 Kidney transplant status
CPT/HCPCS: 76770

== ENCOUNTER → 2021-04-29 | Outpatient (CLI) | payer MEDICARE, BC | END | disposition home or self-care (01) | LOC: LABWHC1 08:38 | PROVIDERS: ATTEND Nurse Practitioner Family | DX: Z94.0 Kidney transplant status (principal) | CPT/HCPCS: 36415; 80197 ==

== ENCOUNTER → 2021-07-15 | Outpatient (CLI) | payer MEDICARE, BC ==
[2021-07-15 10:37] LABS: Creatinine,Urine Random 40.6 mg/dL; Protein/Creatinine Ratio,Urine 0.443
[2021-07-15 11:08] LABS: Appearance,Urine Clear (Clear); Bilirubin,Urine Negative (Negative); Blood,Urine Negative (Negative); Color,Urine Light Yellow; Glucose,Urine (UA) Negative (Negative); Ketones,Urine Negative (Negative); Leukocyte Esterase,Urine Negative (Negative); Nitrite,Urine Negative (Negative); Protein,Urine Negative (Negative); Specific Gravity,Urine 1.007 (1.001-1.035); Urobilinogen,Urine <2.0 mg/dL (<2.0)
[2021-07-15 11:14] LABS: % Iron Saturation 84.14 (15.00-50.00); Albumin 4.2 g/dL (3.8-4.9)
== END | disposition home or self-care (01) ==
LOC: LABWHC1 07:42
PROVIDERS: ATTEND Internal Medicine Nephrology
DX: E55.9 Vitamin D deficiency, unspecified (principal); N25.81 Secondary hyperparathyroidism of renal origin; M10.9 Gout, unspecified; N39.0 Urinary tract infection, site not specified; D64.9 Anemia, unspecified; R80.9 Proteinuria, unspecified; Z94.0 Kidney transplant status
CPT/HCPCS: 36415; 81003; 82040; 82306; 82570; 82728; 83540; 83550; 83970; 84156

== ENCOUNTER → 2021-09-12 | Outpatient (CLI) | payer MEDICARE, BC | END | disposition home or self-care (01) | LOC: LABWHC1 07:57 | DX: Z94.0 Kidney transplant status (principal) | CPT/HCPCS: 36415 ==

== ENCOUNTER 2021-10-04 07:08 | Day surgery (SDC) | payer MEDICARE, BC ==
[~2021-10-04 07:08] MED LIST: LACTATED RINGERS 1,000 ML IV SCH
[2021-10-04 07:30] VITALS: TEMP 96.7
[2021-10-04] MEDS ORDERED: SODIUM CHLORIDE 0.9% 1,000 ML IV ONE (07:40)
[2021-10-04 07:44] LABS: Glucose,Whole Blood 79 mg/dL (70-110)
[2021-10-04] MEDS ORDERED: PROPOFOL 10 MG/ML 20 ML VIAL IV ONE (08:08)
--- NOTE | 2021-10-04 08:11 | P.GSHP ---
History of Present Illness H&P Date: 10/04/21 Chief Complaint: Colon cancer screening 50-year-old male here today for colonoscopy. He has not had one previously. No bowel related complaints. No family history of colon cancer. Past Medical History Past Medical History: Diabetes Mellitus, Hypertension Additional Past Medical History / Comment(s): IPPD AT AGE 16 YR. LOST SIGHT IN 2004. was on dialysis prior to kidney transplant, shunt left arm History of Any Multi-Drug Resistant Organisms: VRE Date of last positivie culture/infection: 06/15/2014 MDRO Source:: Urine-Enterococcus faecium Additional Past Surgical History / Comment(s): Kidney transplant IN 2011 AT [facility]. MANY EYE SURGERIES Past Anesthesia/Blood Transfusion Reactions: Postoperative Nausea & Vomiting (PONV) Past Psychological History: No Psychological Hx Reported Smoking Status: Never smoker Past Alcohol Use History: None Reported Past Drug Use History: None Reported Medications and Allergies Home Medications Medication Instructions Recorded Confirmed Type Metoprolol Tartrate [Lopressor] 100 mg PO BID 06/14/14 09/29/[address] [Myfortic] 180 mg PO BID 06/14/14 09/29/21 History Tamsulosin HCl [Flomax] 0.4 mg PO DAILY 06/14/14 09/29/21 History predniSONE 10 mg PO QAM 06/14/14 09/29/21 History Glucagon Emergency Kit 1 mg SQ ONCE 09/10/14 09/29/21 History Tacrolimus [Prograf] 3 mg PO QAM 11/05/15 09/29/21 History cloNIDine HCL [Catapres] 0.1 mg PO HS 11/05/15 09/29/21 History L.acidoph,Paracasei, B.lactis 1 cap PO DAILY 11/26/16 09/29/21 History [Probiotic] Multivitamins, Thera [Multivitamin 1 tab PO DAILY 11/26/16 09/29/21 History (formulary)] [place]-3 Fatty Acids/Fish Oil [Fish 1 cap PO DAILY 11/26/16 09/29/21 History Oil 1,000 mg Softgel] Sodium Polystyrene Sulfon/Sorb 1 dose PO MOWEFR 01/23/17 09/29/21 History [Kionex 15 gm/60 ml Suspension] Cholecalciferol [Vitamin D3 (25 25 mcg PO DAILY 09/29/21 09/29/21 History Mcg = 1000 Iu)] Insulin Aspart [NovoLOG Flexpen] 1 dose SQ ACHS 09/29/21 09/29/21 History Insulin Glargine [Lantus Vial] 28 units SQ QAM 09/29/21 09/29/21 History Tacrolimus [Prograf] 2 mg PO HS 09/29/21 09/29/21 History Turmeric Root Extract [Turmeric] 1 tab PO DAILY 09/29/21 09/29/21 History amLODIPine 10 mg PO DAILY PRN 09/29/21 09/29/21 History Allergies Allergy/AdvReac Type Severity Reaction Status Date / Time acetazolamide Allergy Nausea & Verified 10/04/21 07:22 [From [employer]] Vomiting bisoprolol fumarate Allergy Nausea & Verified 10/04/21 07:22 [From Ziac] Vomiting hydrochlorothiazide Allergy Nausea & Verified 10/04/21 07:22 [From Ziac] Vomiting Surgical - Exam Vital Signs Temp Pulse Resp BP Pulse Ox 96.7 F L 76 16 144/87 98 10/04/21 07:29 10/04/21 07:29 10/04/21 07:29 10/04/21 07:29 10/04/21 07:29 Physical exam: General: Well-developed, well-nourished HEENT: Normocephalic, sclerae nonicteric Abdomen: Nontender, nondistended Extremities: No edema Neuro: Alert and oriented Assessment and Plan (1) Colon cancer screening Narrative/Plan: Will proceed with colonoscopy at this time Current Visit: Yes Status: Acute Code(s): Z12.11 - ENCOUNTER FOR SCREENING FOR MALIGNANT NEOPLASM OF COLON SNOMED Code(s): 883264634
--- NOTE | 2021-10-04 08:32 | P.PCN ---
Date of Procedure: 10/04/21 Procedure(s) Performed: PREOPERATIVE DIAGNOSIS: Colon cancer screening POSTOPERATIVE DIAGNOSIS: Diverticulosis PROCEDURE: Colonoscopy ANESTHESIA: MAC SURGEON: Kofi Christie M.D. SPECIMENS: None ENDOSCOPIC PROCEDURE: The patient was placed on the endoscopy table in the left decubitus position. The Olympus colonoscope was inserted into the anus and passed under direct visualization to the base of the cecum. The appendiceal orifice was visualized. From that point the scope was slowly withdrawn inspe cting all surfaces carefully. There were no neoplastic inflammatory or polypoid lesions throughout the cecum, ascending, transverse, descending, sigmoid and rectum. There was mild left-sided diverticulosis noted. Digital rectal examination was normal. The patient was taken to the recovery room in stable condition per anesthesia guidelines. RECOMMENDATIONS: Resume diet. Follow colonoscopy 10 years.
[2021-10-04 09:00] LABS: Glucose,Whole Blood 73 mg/dL (70-110)
[2021-10-04 09:04] VITALS: BP 136/69; PULSE 77; RESP 16
== END 2021-10-04 09:38 | disposition home or self-care (01) ==
LOC: ORWHC2ENDO 07:08
PROVIDERS: ATTEND Surgery
DX: Z12.11 Encounter for screening for malignant neoplasm of colon (principal); K57.30 Diverticulosis of large intestine without perforation or abscess without bleeding; I10 Essential (primary) hypertension; E11.9 Type 2 diabetes mellitus without complications; H54.7 Unspecified visual loss; Z94.0 Kidney transplant status; Z79.899 Other long term (current) drug therapy; Z79.4 Long term (current) use of insulin; Z79.52 Long term (current) use of systemic steroids; Z88.8 Allergy status to other drugs, medicaments and biological substances
CPT/HCPCS: J2704; G0121

== ENCOUNTER → 2021-10-14 | Outpatient (CLI) | payer MEDICARE, BC ==
[2021-10-14 09:37] LABS: Creatinine,Urine Random 56.9 mg/dL; Protein/Creatinine Ratio,Urine 0.334
[2021-10-14 10:46] LABS: Basophils # (A) 0.03 X 10*3/uL (0.00-0.10); Basophils % (A) 0.4 %; Eosinophils # (A) 0.06 X 10*3/uL (0.04-0.35); Eosinophils % (A) 0.8 %; HCT 42.3 % (39.6-50.0); HGB 13.2 g/dL (13.0-17.0); Lymphocytes # (A) 0.34 X 10*3/uL (0.90-5.00); Lymphocytes % (A) 4.4 %; MCH 28.4 pg (27.0-32.0); MCHC 31.2 g/dL (32.0-37.0); MCV 91.2 fL (80.0-97.0); Mean Platelet Volume 12.8 fL (9.5-12.2); Monocytes # (A) 0.66 X 10*3/uL (0.20-1.00); Monocytes % (A) 8.6 %; NRBC Per 100 WBC 0 /100 WBCS (0.0-0.0); Neutrophils # (A) 6.48 X 10*3/uL (1.80-7.70); Neutrophils % (A) 84.8 %; Platelet Count 162 X 10*3/uL (140-440); RBC 4.64 X 10*6/uL (4.40-5.60); RDW 13.2 % (11.5-14.5); WBC 7.65 X 10*3/uL (4.50-10.00)
[2021-10-14 11:50] LABS: % Iron Saturation 67.86 (15.00-50.00); Chol/HDL Ratio 2.61 Ratio; Iron 152 ug/dL (65-175); LDL Cholesterol,Calculated 38.6 mg/dL (0.0-131.0); Total Iron Binding Capacity 224 ug/dL (228-460); VLDL Calculation 17.62 mg/dL (5.00-40.00)
[2021-10-14 12:08] LABS: Magnesium 1.7 mg/dL (1.5-2.4); Phosphorus 2.2 mg/dL (2.4-5.1); Uric Acid 6.6 mg/dL (3.7-8.7)
[2021-10-14 12:17] LABS: Appearance,Urine Clear (Clear); Bilirubin,Urine Negative (Negative); Blood,Urine Negative (Negative); Color,Urine Yellow (Yellow); Ketones,Urine Negative (Negative); Nitrite,Urine Negative (Negative); PH, Urine 6.5 (5.0-8.0); Specific Gravity,Urine 1.007 (1.001-1.030); Urobilinogen,Urine 0.2 (0.2,1.0)
[2021-10-14 12:54] LABS: ALT 19 U/L (10-49); AST 12 U/L (14-35); African American GFR (CKD) 53.3 (60.0-200.0); Alkaline Phosphatase 60 U/L (41-126); BUN/Creat Ratio 14.94 Ratio (12.00-20.00); Bilirubin, Conjugated <0.20 mg/dL (0.20-0.40); Blood Urea Nitrogen 25.4 mg/dL (9.0-27.0); Calcium 9.6 mg/dL (8.7-10.3); Chloride 107 mmol/L (96-109); Glucose 96 mg/dL (70-110); Potassium 4.4 mmol/L (3.5-5.5); Sodium 143 mmol/L (135-145)
[2021-10-15 12:27] LABS: Tacrolimus (FK506) 7.8 ng/mL (5.0-20.0)
== END | disposition home or self-care (01) ==
LOC: LABWHC1 07:41
PROVIDERS: ATTEND Nurse Practitioner Family
DX: E55.9 Vitamin D deficiency, unspecified (principal); N25.81 Secondary hyperparathyroidism of renal origin; N39.0 Urinary tract infection, site not specified; D64.9 Anemia, unspecified; R80.9 Proteinuria, unspecified; Z94.0 Kidney transplant status
CPT/HCPCS: 36415; 80053; 80061; 80197; 81003; 82248; 82306; 82570; 82728; 83036; 83540; 83550; 83735; 83970; 84100; 84156; 84402; 84403; 84550; 85025

== ENCOUNTER → 2021-12-16 | Outpatient (CLI) | payer MEDICARE, BC ==
[2021-12-16 15:59] LABS: Basophils # (A) 0.03 X 10*3/uL (0.00-0.10); Basophils % (A) 0.4 %; Eosinophils # (A) 0.03 X 10*3/uL (0.04-0.35); Eosinophils % (A) 0.4 %; HCT 43.3 % (39.6-50.0); HGB 13.4 g/dL (13.0-17.0); Immature Grans, Automated 1.2 %; Lymphocytes # (A) 0.28 X 10*3/uL (0.90-5.00); Lymphocytes % (A) 3.4 %; MCH 28.6 pg (27.0-32.0); MCHC 30.9 g/dL (32.0-37.0); MCV 92.3 fL (80.0-97.0); Monocytes # (A) 0.68 X 10*3/uL (0.20-1.00); Monocytes % (A) 8.2 %; NRBC Per 100 WBC 0 /100 WBCS (0.0-0.0); Neutrophils # (A) 7.19 X 10*3/uL (1.80-7.70); Neutrophils % (A) 86.4 %; Platelet Count 178 X 10*3/uL (140-440); RBC 4.69 X 10*6/uL (4.40-5.60); RDW 13.8 % (11.5-14.5); WBC 8.31 X 10*3/uL (4.50-10.00)
[2021-12-16 16:42] LABS: ALT 18 U/L (10-49); AST 14 U/L (14-35); African American GFR (CKD) 49.1 (60.0-200.0); Albumin 4.1 g/dL (3.8-4.9); Albumin/Globulin Ratio 1.93 (1.60-3.17); Alkaline Phosphatase 83 U/L (41-126); BUN/Creat Ratio 13.09 Ratio (12.00-20.00); Bilirubin, Conjugated <0.20 mg/dL (0.20-0.40); Blood Urea Nitrogen 23.7 mg/dL (9.0-27.0); Calcium 9.9 mg/dL (8.7-10.3); Chloride 112 mmol/L (96-109); Globulin 2.1 g/dL (1.6-3.3); Glucose 66 mg/dL (70-110); Magnesium 1.7 mg/dL (1.5-2.4); Non-African American GFR(CKD) 42.3 (60.0-200.0); Phosphorus 2.4 mg/dL (2.4-5.1); Potassium 5.3 mmol/L (3.5-5.5); Sodium 145 mmol/L (135-145); Total Protein 6.2 g/dL (6.2-8.2); Uric Acid 5.9 mg/dL (3.7-8.7)
[2021-12-16 18:11] LABS: Gliadin AB IgA, Deaminated NEGATIVE (NEGATIVE); Gliadin AB IgA, Unit 0.3 U/mL; Gliadin AB IgG, Deaminated NEGATIVE (NEGATIVE); Gliadin AB IgG, Unit <0.4 U/mL
== END | disposition home or self-care (01) ==
LOC: LABWHC1 08:00
PROVIDERS: ATTEND Internal Medicine Gastroenterology
DX: K52.9 Noninfective gastroenteritis and colitis, unspecified (principal)
CPT/HCPCS: 36415; 80053; 80197; 82248; 83516; 83735; 84100; 84550; 85025

== ENCOUNTER → 2022-02-20 | Outpatient (CLI) | payer MEDICARE, BC ==
[2022-02-20 15:21] LABS: ALT 28 U/L (10-49); AST 13 U/L (14-35); African American GFR (CKD) 51.8 (60.0-200.0); Albumin 4.1 g/dL (3.8-4.9); Albumin/Globulin Ratio 2.39 (1.60-3.17); Alkaline Phosphatase 88 U/L (41-126); BUN/Creat Ratio 15.66 Ratio (12.00-20.00); Bilirubin, Conjugated <0.20 mg/dL (0.20-0.40); Blood Urea Nitrogen 27.1 mg/dL (9.0-27.0); Carbon Dioxide 20.9 mmol/L (20.0-27.5); Chloride 112 mmol/L (96-109); Globulin 1.7 g/dL (1.6-3.3); Glucose 71 mg/dL (70-110); Magnesium 1.7 mg/dL (1.5-2.4); Non-African American GFR(CKD) 44.7 (60.0-200.0); Phosphorus 2.9 mg/dL (2.4-5.1); Potassium 3.6 mmol/L (3.5-5.5); Sodium 145 mmol/L (135-145); Total Protein 5.9 g/dL (6.2-8.2); Uric Acid 5.7 mg/dL (3.7-8.7)
[2022-02-20 15:23] LABS: Basophils # (A) 0.04 X 10*3/uL (0.00-0.10); Basophils % (A) 0.5 %; Eosinophils # (A) 0.06 X 10*3/uL (0.04-0.35); Eosinophils % (A) 0.7 %; HCT 42.8 % (39.6-50.0); HGB 13.3 g/dL (13.0-17.0); Immature Grans, Automated 1.3 %; Lymphocytes # (A) 0.35 X 10*3/uL (0.90-5.00); MCH 29.3 pg (27.0-32.0); MCHC 31.1 g/dL (32.0-37.0); MCV 94.3 fL (80.0-97.0); Mean Platelet Volume 12.6 fL (9.5-12.2); Monocytes # (A) 0.66 X 10*3/uL (0.20-1.00); Monocytes % (A) 7.5 %; NRBC Per 100 WBC 0 /100 WBCS (0.0-0.0); Neutrophils # (A) 7.57 X 10*3/uL (1.80-7.70); Platelet Count 171 X 10*3/uL (140-440); RBC 4.54 X 10*6/uL (4.40-5.60); RDW 14.5 % (11.5-14.5); WBC 8.79 X 10*3/uL (4.50-10.00)
[2022-02-20 15:48] LABS: Chol/HDL Ratio 2.26 Ratio; Iron 158 ug/dL (65-175); LDL Cholesterol,Calculated 37.5 mg/dL (0.0-131.0); VLDL Calculation 16.74 mg/dL (5.00-40.00)
[2022-02-20 15:51] LABS: Appearance,Urine Clear (Clear); Bilirubin,Urine Negative (Negative); Blood,Urine Negative (Negative); Color,Urine Yellow (Yellow); Ketones,Urine Negative (Negative); Nitrite,Urine Negative (Negative); PH, Urine 6.5 (5.0-8.0); Specific Gravity,Urine 1.006 (1.001-1.030); Urobilinogen,Urine 0.2 (0.2,1.0)
[2022-02-21 01:08] LABS: Creatinine,Urine Random 34.4 mg/dL; Protein/Creatinine Ratio,Urine 0.727
[2022-02-21 12:47] LABS: % Iron Saturation 69.66 (15.00-50.00); Total Iron Binding Capacity 227 ug/dL (228-460)
== END | disposition home or self-care (01) ==
LOC: LABWHC1 08:02
PROVIDERS: ATTEND Internal Medicine Nephrology
DX: Z94.0 Kidney transplant status (principal); E55.9 Vitamin D deficiency, unspecified; N25.81 Secondary hyperparathyroidism of renal origin; M10.9 Gout, unspecified; N39.0 Urinary tract infection, site not specified; D64.9 Anemia, unspecified; R80.9 Proteinuria, unspecified
CPT/HCPCS: 36415; 80053; 80061; 80197; 81003; 82248; 82306; 82570; 82728; 83540; 83550; 83735; 83970; 84100; 84156; 84550; 85025

== ENCOUNTER → 2022-06-12 | Outpatient (CLI) | payer MEDICARE, BC | END | disposition home or self-care (01) | LOC: LABWHC1 08:11 | PROVIDERS: ATTEND Registered Nurse Wound Care | DX: Z79.621 Long term (current) use of calcineurin inhibitor (principal) | CPT/HCPCS: 36415; 80197 ==

== ENCOUNTER → 2023-03-03 | Outpatient (CLI) | payer MEDICARE, BC ==
[2023-03-03 13:50] LABS: Chol/HDL Ratio 2.63 Ratio; LDL Cholesterol,Calculated 74.5 mg/dL (0.0-131.0); VLDL Calculation 15.36 mg/dL (5.00-40.00)
[2023-03-03 13:59] LABS: Basophils # (A) 0.04 X 10*3/uL (0.00-0.10); Basophils % (A) 0.4 %; Eosinophils # (A) 0.05 X 10*3/uL (0.04-0.35); Eosinophils % (A) 0.5 %; HCT 44.6 % (39.6-50.0); HGB 14.3 g/dL (13.0-17.0); Lymphocytes # (A) 0.35 X 10*3/uL (0.90-5.00); Lymphocytes % (A) 3.7 %; MCH 29.4 pg (27.0-32.0); MCHC 32.1 g/dL (32.0-37.0); MCV 91.6 FL (80.0-97.0); Mean Platelet Volume 11.8 FL (9.5-12.2); Monocytes % (A) 8.4 %; NRBC Per 100 WBC 0 X 10*3/uL (0.00-0.01); Neutrophils # (A) 8.16 X 10*3/uL (1.80-7.70); Neutrophils % (A) 86.3 %; Platelet Count 182 X 10*3/uL (140-440); RBC 4.87 X 10*6/uL (4.40-5.60); RDW 13.1 % (11.5-14.5); WBC 9.47 X 10*3/uL (4.50-10.00)
[2023-03-03 14:09] LABS: Magnesium 1.9 mg/dL (1.5-2.4); Phosphorus 2.9 mg/dL (2.4-5.1); Uric Acid 6.5 mg/dL (3.7-8.7)
[2023-03-04 16:22] LABS: ALT 19 U/L (10-49); AST 17 U/L (14-35); Albumin 4.3 g/dL (3.8-4.9); Albumin/Globulin Ratio 1.87 Ratio (1.60-3.17); Alkaline Phosphatase 49 U/L (41-126); Bilirubin, Conjugated <0.20 mg/dL (0.20-0.40); Globulin 2.3 g/dL (1.6-3.3); Total Bilirubin 0.3 mg/dL (0.3-1.2); Total Protein 6.6 g/dL (6.2-8.2)
[2023-03-05 15:27] LABS: Tacrolimus (FK506) 3.3 ng/mL (5.0-20.0)
== END | disposition home or self-care (01) ==
LOC: LABWHC1 08:20
PROVIDERS: ATTEND Internal Medicine Nephrology
DX: Z94.0 Kidney transplant status (principal); E10.29 Type 1 diabetes mellitus with other diabetic kidney complication
CPT/HCPCS: 36415; 80061; 80076; 80197; 82040; 83735; 84100; 84270; 84403; 84550; 85025

== ENCOUNTER → 2023-03-17 | Outpatient (CLI) | payer MEDICARE, BC ==
[2023-03-17 15:33] LABS: ALT 18 U/L (10-49); AST 15 U/L (14-35); Albumin 4.2 g/dL (3.8-4.9); Albumin/Globulin Ratio 1.91 Ratio (1.60-3.17); Alkaline Phosphatase 52 U/L (41-126); BUN/Creat Ratio 17.83 Ratio (12.00-20.00); Blood Urea Nitrogen 32.1 mg/dL (9.0-27.0); Calcium 10.1 mg/dL (8.7-10.3); Carbon Dioxide 26.1 mmol/L (21.6-31.8); Chloride 106 mmol/L (96-109); Globulin 2.2 g/dL (1.6-3.3); Glucose 85 mg/dL (70-110); Potassium 4.9 mmol/L (3.5-5.5); Sodium 141 mmol/L (135-145); Total Bilirubin 0.5 mg/dL (0.3-1.2); Total Protein 6.4 g/dL (6.2-8.2)
== END | disposition home or self-care (01) ==
LOC: LABWHC1 07:58
PROVIDERS: ATTEND Internal Medicine Nephrology
DX: Z94.0 Kidney transplant status (principal)
CPT/HCPCS: 36415; 80053

== ENCOUNTER → 2023-03-23 | Outpatient (CLI) | payer MEDICARE, BC | END | disposition home or self-care (01) | LOC: LABWHC1 08:10 | PROVIDERS: ATTEND Internal Medicine Nephrology | DX: N18.32 Chronic kidney disease, stage 3b (principal) | CPT/HCPCS: 36415; 80197 ==

== ENCOUNTER → 2023-04-13 | Outpatient (CLI) | payer MEDICARE, BC ==
[2023-04-13 09:20] LABS: Appearance,Urine Clear (Clear); Bilirubin,Urine Negative (Negative); Blood,Urine Negative (Negative); Color,Urine Colorless; Glucose,Urine (UA) Negative (Negative); Ketones,Urine Negative (Negative); Leukocyte Esterase,Urine Negative (Negative); Nitrite,Urine Negative (Negative); PH, Urine 5.5 (5.0-8.0); Protein,Urine Negative (Negative); Specific Gravity,Urine 1.005 (1.001-1.035); Urobilinogen,Urine <2.0 mg/dL (<2.0)
[2023-04-13 15:35] LABS: Basophils # (A) 0.04 X 10*3/uL (0.00-0.10); Basophils % (A) 0.4 %; Eosinophils # (A) 0.04 X 10*3/uL (0.04-0.35); Eosinophils % (A) 0.4 %; HCT 44.2 % (39.6-50.0); HGB 14.3 g/dL (13.0-17.0); Lymphocytes # (A) 0.28 X 10*3/uL (0.90-5.00); Lymphocytes % (A) 2.9 %; MCH 29.1 pg (27.0-32.0); MCHC 32.4 g/dL (32.0-37.0); MCV 89.8 FL (80.0-97.0); Mean Platelet Volume 12.4 FL (9.5-12.2); Monocytes # (A) 0.84 X 10*3/uL (0.20-1.00); Monocytes % (A) 8.7 %; NRBC Per 100 WBC 0 X 10*3/uL (0.00-0.01); Neutrophils % (A) 86.8 %; Platelet Count 169 X 10*3/uL (140-440); RBC 4.92 X 10*6/uL (4.40-5.60); RDW 13.1 % (11.5-14.5); WBC 9.68 X 10*3/uL (4.50-10.00)
[2023-04-13 16:26] LABS: % Iron Saturation 68.72 (15.00-50.00); ALT 16 U/L (10-49); AST 14 U/L (14-35); Albumin 4.1 g/dL (3.8-4.9); Albumin/Globulin Ratio 2.05 Ratio (1.60-3.17); Alkaline Phosphatase 50 U/L (41-126); BUN/Creat Ratio 15.61 Ratio (12.00-20.00); Bilirubin, Conjugated <0.20 mg/dL (0.20-0.40); Bilirubin,Unconjugated >0.20 mg/dL (0.20-1.00); Blood Urea Nitrogen 28.1 mg/dL (9.0-27.0); Calcium 9.5 mg/dL (8.7-10.3); Carbon Dioxide 23.7 mmol/L (21.6-31.8); Chloride 104 mmol/L (96-109); Chol/HDL Ratio 2.63 Ratio; Glucose 126 mg/dL (70-110); Iron 145 UG/DL (65-175); LDL Cholesterol,Calculated 51.4 mg/dL (0.0-131.0); Magnesium 1.6 mg/dL (1.5-2.4); Phosphorus 2.6 mg/dL (2.4-5.1); Potassium 4.4 mmol/L (3.5-5.5); Sodium 140 mmol/L (135-145); Total Bilirubin 0.4 mg/dL (0.3-1.2); Total Iron Binding Capacity 211 UG/DL (228-460); Total Protein 6.1 g/dL (6.2-8.2); Uric Acid 5.6 mg/dL (3.7-8.7)
[2023-04-13 19:11] LABS: Microalbumin Creatinine Ratio <40 mg/g Cr (0-30); Urine Creatinine 30.1 mg/dL (39.0-259.0)
[2023-04-14 08:33] LABS: Tacrolimus (FK506) 5.1 ng/mL (5.0-20.0)
== END | disposition home or self-care (01) ==
LOC: LABWHC1 08:00
PROVIDERS: ATTEND Nurse Practitioner Family
DX: M10.9 Gout, unspecified (principal); N39.0 Urinary tract infection, site not specified; N18.32 Chronic kidney disease, stage 3b; D63.1 Anemia in chronic kidney disease; Z84.0 Family history of diseases of the skin and subcutaneous tissue
CPT/HCPCS: 36415; 80053; 80061; 80076; 80197; 81003; 82040; 82043; 82570; 82728; 83036; 83540; 83550; 83735; 84100; 84270; 84403; 84550; 85025

== ENCOUNTER → 2023-06-15 | Outpatient (CLI) | payer MEDICARE, BC ==
[2023-06-15 16:00] LABS: Basophils # (A) 0.04 X 10*3/uL (0.00-0.10); Basophils % (A) 0.5 %; Eosinophils # (A) 0.09 X 10*3/uL (0.04-0.35); Eosinophils % (A) 1.2 %; HGB 13.9 g/dL (13.0-17.0); Lymphocytes # (A) 0.45 X 10*3/uL (0.90-5.00); Lymphocytes % (A) 6.1 %; MCH 28.6 pg (27.0-32.0); MCHC 31.6 g/dL (32.0-37.0); MCV 90.5 FL (80.0-97.0); Mean Platelet Volume 12.3 FL (9.5-12.2); Monocytes # (A) 0.78 X 10*3/uL (0.20-1.00); Monocytes % (A) 10.6 %; NRBC Per 100 WBC 0 X 10*3/uL (0.00-0.01); Neutrophils # (A) 5.86 X 10*3/uL (1.80-7.70); Neutrophils % (A) 80.1 %; Platelet Count 185 X 10*3/uL (140-440); RBC 4.86 X 10*6/uL (4.40-5.60); RDW 14.2 % (11.5-14.5); WBC 7.33 X 10*3/uL (4.50-10.00)
[2023-06-15 16:25] LABS: ALT 17 U/L (10-49); AST 10 U/L (14-35); Albumin 4.2 g/dL (3.8-4.9); Alkaline Phosphatase 75 U/L (41-126); BUN/Creat Ratio 18.76 Ratio (12.00-20.00); Bilirubin, Conjugated <0.20 mg/dL (0.20-0.40); Bilirubin,Unconjugated >0.30 mg/dL (0.20-1.00); Blood Urea Nitrogen 39.4 mg/dL (9.0-27.0); Calcium 9.8 mg/dL (8.7-10.3); Carbon Dioxide 21.8 mmol/L (21.6-31.8); Chloride 112 mmol/L (96-109); Chol/HDL Ratio 2.39 Ratio; Globulin 2.1 g/dL (1.6-3.3); Glucose 79 mg/dL (70-110); LDL Cholesterol,Calculated 31.2 mg/dL (0.0-131.0); Magnesium 1.8 mg/dL (1.5-2.4); Phosphorus 3.1 mg/dL (2.4-5.1); Potassium 4.8 mmol/L (3.5-5.5); Sodium 145 mmol/L (135-145); Total Bilirubin 0.5 mg/dL (0.3-1.2); Total Protein 6.3 g/dL (6.2-8.2); Uric Acid 6.8 mg/dL (3.7-8.7)
== END | disposition home or self-care (01) ==
LOC: LABWHC1 07:49
PROVIDERS: ATTEND Internal Medicine Nephrology
DX: Z94.0 Kidney transplant status (principal)
CPT/HCPCS: 36415; 80053; 80061; 80197; 82248; 83735; 84100; 84550; 85025

== ENCOUNTER → 2023-07-12 | Outpatient (CLI) | payer MEDICARE, BC ==
[2023-07-12 15:37] LABS: Appearance,Urine Clear (Clear); Bilirubin,Urine Negative (Negative); Blood,Urine Negative (Negative); Color,Urine Yellow (Yellow); Ketones,Urine Negative (Negative); Nitrite,Urine Negative (Negative); PH, Urine 6.5; Specific Gravity,Urine 1.008 (1.001-1.030); Urobilinogen,Urine 0.2 E.U./DL
[2023-07-12 16:35] LABS: % Iron Saturation 84.65 (15.00-50.00)
[2023-07-12 17:42] LABS: Microalbumin Creatinine Ratio <19 mg/g Cr (0-30); Urine Creatinine 62.4 mg/dL (39.0-259.0)
== END | disposition home or self-care (01) ==
LOC: LABWHC1 08:07
PROVIDERS: ATTEND Internal Medicine Nephrology
DX: E55.9 Vitamin D deficiency, unspecified (principal); N25.81 Secondary hyperparathyroidism of renal origin; M10.9 Gout, unspecified; N39.0 Urinary tract infection, site not specified; N18.32 Chronic kidney disease, stage 3b; D63.1 Anemia in chronic kidney disease; R80.9 Proteinuria, unspecified
CPT/HCPCS: 36415; 81003; 82043; 82306; 82570; 82728; 83540; 83550; 83970

== ENCOUNTER → 2023-07-20 | Outpatient (CLI) | payer MEDICARE, BC ==
--- NOTE | 2023-07-20 17:21 | US ---
EXAMINATION TYPE: US kidneys/renal and bladder DATE OF EXAM: 07/20/2023 COMPARISON: 02/16/2021 CLINICAL INDICATION: Male, 52 years old with history of N18.32 CHRONIC KIDNEY DISEASE; CKD, transplan t kidney, abnormal labs EXAM MEASUREMENTS: Right Kidney: 7.3 x 4.0 x 3.5 cm Left Kidney: 6.8 x 3.4 x 4.5 cm Right [place] Kidney: Atrophic Left [place] Kidney: Atrophic Transplant kidney located within RLQ appears wnl, no evidence of hydro, good perfusion visualized Bladder: wnl Bilateral Jets seen: No There is no evidence for hydronephrosis at this point in time. No nephrolithiasis is seen. No bharath s are identified. The urinary bladder is anechoic. IMPRESSION: 1. Markedly atrophic [place] kidneys. 2. Normal appearing transplant kidney in the right lower quadrant without renal mass, renal calcifica tion or hydronephrosis. 3. Normal appearing urinary bladder.
== END | disposition home or self-care (01) ==
LOC: RADUSWWP 16:09
PROVIDERS: ATTEND Internal Medicine Nephrology
DX: N26.1 Atrophy of kidney (terminal) (principal); N18.32 Chronic kidney disease, stage 3b; R79.9 Abnormal finding of blood chemistry, unspecified; Z94.0 Kidney transplant status
CPT/HCPCS: 76770

== ENCOUNTER → 2023-09-11 | Outpatient (CLI) | payer MEDICARE, BC ==
[2023-09-11 10:30] LABS: Basophils # (A) 0.03 X 10*3/uL (0.00-0.10); Basophils % (A) 0.4 %; Eosinophils % (A) 1.5 %; HCT 43.2 % (39.6-50.0); HGB 13.7 g/dL (13.0-17.0); Lymphocytes # (A) 0.57 X 10*3/uL (0.90-5.00); Lymphocytes % (A) 8.4 %; MCH 29.5 pg (27.0-32.0); MCHC 31.7 g/dL (32.0-37.0); MCV 92.9 FL (80.0-97.0); Mean Platelet Volume 12.4 FL (9.5-12.2); Monocytes # (A) 0.64 X 10*3/uL (0.20-1.00); Monocytes % (A) 9.4 %; NRBC Per 100 WBC 0 X 10*3/uL (0.00-0.01); Neutrophils # (A) 5.42 X 10*3/uL (1.80-7.70); Neutrophils % (A) 79.6 %; Platelet Count 193 X 10*3/uL (140-440); RBC 4.65 X 10*6/uL (4.40-5.60); RDW 14.7 % (11.5-14.5); WBC 6.81 X 10*3/uL (4.50-10.00)
[2023-09-11 10:46] LABS: Microalbumin Creatinine Ratio <36 mg/g Cr (0-30); Urine Creatinine 33.6 mg/dL (39.0-259.0)
[2023-09-11 11:08] LABS: % Iron Saturation 85.99 (15.00-50.00); Albumin 4.4 g/dL (3.8-4.9); BUN/Creat Ratio 13.68 Ratio (12.00-20.00); Blood Urea Nitrogen 34.2 mg/dL (9.0-27.0); Calcium 8.9 mg/dL (8.7-10.3); Carbon Dioxide 14.9 mmol/L (21.6-31.8); Chloride 113 mmol/L (96-109); Glucose 109 mg/dL (70-110); Iron 178 UG/DL (65-175); Magnesium 1.4 mg/dL (1.5-2.4); Phosphorus 2.7 mg/dL (2.4-5.1); Potassium 4.4 mmol/L (3.5-5.5); Sodium 141 mmol/L (135-145); Total Iron Binding Capacity 207 UG/DL (228-460); Uric Acid 7.7 mg/dL (3.7-8.7)
[2023-09-11 11:35] LABS: Appearance,Urine Clear (Clear); Bilirubin,Urine Negative (Negative); Blood,Urine Negative (Negative); Color,Urine Yellow (Yellow); Ketones,Urine Negative (Negative); Nitrite,Urine Negative (Negative); PH, Urine 6.5; Specific Gravity,Urine 1.005 (1.001-1.030); Urobilinogen,Urine 0.2 E.U./DL
== END | disposition home or self-care (01) ==
LOC: LABWHC1 07:19
PROVIDERS: ATTEND Internal Medicine Nephrology
DX: E55.9 Vitamin D deficiency, unspecified (principal); N25.81 Secondary hyperparathyroidism of renal origin; N39.0 Urinary tract infection, site not specified; N18.32 Chronic kidney disease, stage 3b; D63.1 Anemia in chronic kidney disease
CPT/HCPCS: 36415; 80048; 80197; 81003; 82040; 82043; 82306; 82570; 82728; 83540; 83550; 83735; 83970; 84100; 84550; 85025

== ENCOUNTER → 2023-09-27 | Outpatient (CLI) | payer MEDICARE, BC ==
--- NOTE | 2023-09-27 13:18 | CT ---
EXAMINATION TYPE: CT ChestAbdPelvis wo con DATE OF EXAM: 09/27/2023 COMPARISON: None HISTORY: 52-year-old male N1 8.32 Chronic Kidney disease. Acid reflux. TECHNIQUE: Contiguous axial scanning of the chest, abdomen, and pelvis without IV contrast. Coronal a nd sagittal reconstructions performed. CT DLP: 1477 mGycm Automated exposure control for dose reduction was used. FINDINGS: Chest: The heart is normal size with trace anterior basilar pericardial fluid. Scattered LAD and circumflex coronary artery calcifications are present. Mild bilateral gynecomastia. No thoracic lymphadenopathy by CT size criteria. Aorta normal caliber with bovine configuration to the aortic arch. Lungs show no consolidation or pleural effusion. ABDOMEN: Some residual oral contrast material seen within the mid to distal thoracic esophagus. No sizable hia ratna hernia is identified by CT. Noncontrast appearance of the liver, gallbladder, adrenal glands, and pancreas show no gross abnormal ity. Tiny fatty umbilical hernia measuring 1.7 cm. Some vascular calcifications at the hilum of the spleen and a couple calcified granulomas. Small valdemar r splenule noted. Atrophic bilateral [place] kidneys. A couple small renal cortical cysts are noted measuring up to 9 mm . In addition, approximately 3 nonobstructive right renal stones measuring up to 4 mm. No hydronephro sis. There are numerous scattered borderline and mildly enlarged mesenteric lymph nodes throughout the abd omen measuring up to 1.3 cm. No retroperitoneal adenopathy seen. Prominent air-fluid level seen throughout the colon. Mildly redundant sigmoid colon. No pericolonic i nflammatory change. Pelvis: Right pelvic transplant kidney is noted. Bladder is urine distended. Prostate gland enlarged at 5.6 c m wide. No abnormal fluid collection in the pelvis or pelvic lymphadenopathy. Bones: No osseous destructive process. IMPRESSION: 1. RIGHT PELVIC TRANSPLANT KIDNEY. ATROPHIC BILATERAL [place] PASS KIDNEYS WITH A FEW NONOBSTRUCTIVE STONES MEASURING UP TO 4 MM AND A FEW TINY RENAL CORTICAL CYSTS MEASURING UP TO 9 MM. 2. SOME RESIDUAL CONTRAST MATERIAL IN THE MID AND LOWER THORACIC ESOPHAGUS. FINDINGS COULD REFLECT GA STROESOPHAGEAL REFLUX DISEASE OR ESOPHAGEAL DYSMOTILITY. NO SIZABLE HIATAL HERNIA SEEN BY CT. 3. Numerous scattered borderline and mildly enlarged mesenteric lymph nodes measuring up to 1.3 cm. P ossibly reactive/post inflammatory. Given liquid stool throughout the colon, consider a nonspecific e nteritis/mesenteric adenitis. Follow-up CT in 6 months to ensure stability/resolution of the lymph no lucia. 4. Prostatomegaly at 5.6 cm wide.
== END | disposition home or self-care (01) ==
LOC: RADCTMAIN 11:00
PROVIDERS: ATTEND Internal Medicine Nephrology
DX: N40.0 Benign prostatic hyperplasia without lower urinary tract symptoms (principal); N28.1 Cyst of kidney, acquired; K21.9 Gastro-esophageal reflux disease without esophagitis; N20.0 Calculus of kidney; N18.32 Chronic kidney disease, stage 3b; N26.1 Atrophy of kidney (terminal); R59.0 Localized enlarged lymph nodes; Z94.0 Kidney transplant status
CPT/HCPCS: 71250; 74176

== ENCOUNTER → 2023-10-17 | Outpatient (CLI) | payer MEDICARE, BC ==
[2023-10-17 15:26] LABS: Prostate Specific Antigen 0.61 ng/mL (0.000-3.500); T4, Free (Free Thyroxine) 1.41 ng/dL (0.80-1.80)
== END | disposition home or self-care (01) ==
LOC: LABWHC1 08:10
PROVIDERS: ATTEND Internal Medicine Nephrology
DX: N18.32 Chronic kidney disease, stage 3b (principal)
CPT/HCPCS: 36415; 84153; 84439; 84443

== ENCOUNTER → 2023-12-21 | Outpatient (CLI) | payer MEDICARE, BC ==
[2023-12-21 11:30] LABS: Basophils # (A) 0.03 X 10*3/uL (0.00-0.10); Basophils % (A) 0.2 %; Eosinophils # (A) 0.04 X 10*3/uL (0.04-0.35); Eosinophils % (A) 0.2 %; HCT 40.3 % (39.6-50.0); HGB 12.3 g/dL (13.0-17.0); Lymphocytes # (A) 0.43 X 10*3/uL (0.90-5.00); Lymphocytes % (A) 2.6 %; MCH 29.3 pg (27.0-32.0); MCHC 30.5 g/dL (32.0-37.0); Mean Platelet Volume 11.4 FL (9.5-12.2); Monocytes # (A) 1.39 X 10*3/uL (0.20-1.00); Monocytes % (A) 8.4 %; NRBC Per 100 WBC 0 X 10*3/uL (0.00-0.01); Neutrophils # (A) 14.58 X 10*3/uL (1.80-7.70); Neutrophils % (A) 87.9 %; Platelet Count 233 X 10*3/uL (140-440); RDW 13.8 % (11.5-14.5); WBC 16.59 X 10*3/uL (4.50-10.00)
[2023-12-21 11:50] LABS: Magnesium 1.8 mg/dL (1.5-2.4); Phosphorus 2.9 mg/dL (2.4-5.1)
[2023-12-21 11:51] LABS: % Iron Saturation 25.43 (15.00-50.00); Albumin 3.8 g/dL (3.8-4.9); BUN/Creat Ratio 13.67 Ratio (12.00-20.00); Blood Urea Nitrogen 24.6 mg/dL (9.0-27.0); Calcium 8.5 mg/dL (8.7-10.3); Carbon Dioxide 26.8 mmol/L (21.6-31.8); Chloride 99 mmol/L (96-109); Glucose 57 mg/dL (70-110); Iron 59 UG/DL (65-175); Potassium 4.3 mmol/L (3.5-5.5); Sodium 136 mmol/L (135-145); Total Iron Binding Capacity 232 UG/DL (228-460); Uric Acid 5.3 mg/dL (3.7-8.7)
[2023-12-21 16:42] LABS: Appearance,Urine Cloudy (Clear); Bacteria,Urine Trace (None Seen); Bilirubin,Urine Negative (Negative); Blood,Urine Large (Negative); Color,Urine Orange (Yellow); Ketones,Urine Negative (Negative); Nitrite,Urine Positive (Negative); Specific Gravity,Urine 1.009 (1.001-1.030); Urobilinogen,Urine 0.2
[2023-12-21 18:12] LABS: Urine Creatinine 41.9 mg/dL (39.0-259.0)
== END | disposition home or self-care (01) ==
LOC: LABWHC1 07:45
PROVIDERS: ATTEND Internal Medicine Nephrology
DX: N18.32 Chronic kidney disease, stage 3b
CPT/HCPCS: 36415; 80048; 80197; 81001; 82040; 82043; 82306; 82570; 82728; 83540; 83550; 83735; 83970; 84100; 84550; 85025

== ENCOUNTER 2024-03-25 06:50 | Day surgery (SDC) | payer MEDICARE, BC ==
[2024-02-26 14:03] VITALS: BMI 27.3
[2024-03-25] MEDS: IV FLUID CONTINUATION 1,000 ML IV ONE (07:19)
[2024-03-25] MEDS: SODIUM CHLORIDE 0.9% 1,000 ML IV ONE (07:19)
[2024-03-25 07:23] VITALS: TEMP 97.5
[2024-03-25 07:49] LABS: Glucose,Whole Blood 149 mg/dL (70-110)
[2024-03-25] MEDS ORDERED: PROPOFOL 10 MG/ML 20 ML VIAL IV ONE (08:00)
--- NOTE | 2024-03-25 08:05 | P.GSHP ---
History of Present Illness H&P Date: 03/25/24 Chief Complaint: Heme positive stool 53-year-old male here for colonoscopy. Last colonoscopy 2.5 years ago. Recently patient had stool test for occult blood that was positive both in the office and at home testing. Patient has a history of irritable bowel syndrome with alternating diarrhea and constipation. No symptoms currently. Patient is blind but is not aware of any visible rectal bleeding. 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 Date of last positivie culture/infection: 06/15/2014 MDRO Source:: Urine-Enterococcus faecium Past Surgical History: Tonsillectomy Additional Past Surgical History / Comment(s): Kidney transplant 2011, eye sx, right foot infection surgery osteomyelitis 2022, colonoscopy Past Anesthesia/Blood Transfusion Reactions: No Reported Reaction Additional Past Anesthesia/Blood Transfusion Reaction / Comment(s): no blood transfusion Smoking Status: Never smoker Medications and Allergies Home Medications Medication Instructions Recorded Confirmed Type Metoprolol Tartrate [Lopressor] 25 mg PO DAILY 06/14/14 03/25/[address] [Myfortic] 180 mg PO BID 06/14/14 03/25/24 History Tamsulosin HCl [Flomax] 0.4 mg PO DAILY 06/14/14 03/25/24 History predniSONE 10 mg PO QAM 06/14/14 03/25/24 History Glucagon Emergency Kit 1 mg SQ ONCE 09/10/14 03/25/24 History Multivitamins, Thera [Multivitamin 1 tab PO DAILY 11/26/16 03/25/24 History (formulary)] Cholecalciferol [Vitamin D3 (25 25 mcg PO DAILY 09/29/21 03/25/24 History Mcg = 1000 Iu)] Insulin Aspart [NovoLOG Flexpen] 1 dose SQ ACHS 09/29/21 03/25/24 History Insulin Glargine [Lantus Vial] 28 units SQ QAM 09/29/21 03/25/24 History Tacrolimus [Prograf] 2 mg PO BID 09/29/21 03/25/24 History Bumetanide [Bumex] 1 mg PO DAILY PRN 09/18/23 03/25/24 History Insulin Glargine,Hum.rec.anlog 100 unit SQ DAILY 09/18/23 03/25/24 History [Giulianoagltj Chunpen U-100] Lactobacillus Acidophilus 1 each PO DAILY 09/18/23 03/25/24 History [Florajen Acidophilus] Omeprazole 20 mg PO DAILY 09/18/23 03/25/24 History Sodium Polystyrene Sulfonate 15 gm PO DAILY 09/18/23 03/25/24 History [Kayexalate] allopurinoL [Allopurinol] 100 mg PO DAILY 09/18/23 03/25/24 History calcitrioL 0.5 mcg PO DAILY 09/18/23 03/25/24 History oxyCODONE HCL/ACETAMINOPHEN 1 tab PO Q6H PRN 09/18/23 03/25/24 History [oxyCODONE HCL/ACETAMINOPHEN 5-325] Cephalexin [Keflex] 500 mg PO TID 02/26/24 03/25/24 History Sodium Bicarbonate Tab 650 mg PO QID 02/26/24 03/25/24 History Allergies Allergy/AdvReac Type Severity Reaction Status Date / Time acetazolamide Allergy Nausea & Verified 03/25/24 07:26 [From Diamox Sequels] Vomiting bisoprolol fumarate Allergy Nausea & Verified 03/25/24 07:26 [From Ziac] Vomiting hydrochlorothiazide Allergy Nausea & Verified 03/25/24 07:26 [From Ziac] Vomiting Surgical - Exam Vital Signs Temp Pulse Resp BP Pulse Ox 97.5 F L 75 18 163/85 999 H 03/25/24 07:20 03/25/24 07:20 03/25/24 07:20 03/25/24 07:20 03/25/24 07:20 Physical exam: General: Well-developed, well-nourished HEENT: Normocephalic, sclerae nonicteric Abdomen: Nontender, nondistended Extremities: No edema Neuro: Alert and oriented Results - Labs Abnormal Lab Results - Last 24 Hours (Table) 03/25/24 Range/Units 07:41 POC Glucose (mg/dL) 149 H (70-110) mg/dL Assessment and Plan (1) Heme positive stool Narrative/Plan: Will proceed with colonoscopy at this time. Current Visit: Yes Status: Acute Code(s): R19.5 - OTHER FECAL ABNORMALITIES SNOMED Code(s): 58381988
--- NOTE | 2024-03-25 08:23 | P.PCN ---
Date of Procedure: 03/25/24 Procedure(s) Performed: PREOPERATIVE DIAGNOSIS: Heme positive stools POSTOPERATIVE DIAGNOSIS: Mild diverticulosis PROCEDURE: Colonoscopy ANESTHESIA: MAC SURGEON: Kofi Christie M.D. SPECIMENS: None ENDOSCOPIC PROCEDURE: The patient was placed on the endoscopy table in the left decubitus position. The Olympus colonoscope was inserted into the anus and passed under direct visualization to the base of the cecum. The appendiceal orifice was visualized. From that point the scope was slowly withdrawn in specting all surfaces carefully. There were no neoplastic inflammatory or polypoid lesions throughout the cecum, ascending, transverse, descending, sigmoid and rectum. There was mild left-sided diverticulosis noted. The patient had a slightly suboptimal prep however the majority the mucosal surfaces were well-visualized. Digital rectal examination was normal. The patient was taken to the recovery room in stable condition per anesthesia guidelines. RECOMMENDATIONS: Resume diet. No lower GI evidence of bleeding. Follow-up colonoscopy 7 years.
[2024-03-25 08:44] VITALS: BP 160/80; PULSE 62; RESP 16
[2024-03-25 09:03] LABS: Glucose,Whole Blood 123 mg/dL (70-110)
== END 2024-03-25 09:22 | disposition home or self-care (01) ==
LOC: ORWHC2ENDO 06:50
PROVIDERS: ATTEND Surgery
DX: Z12.11 Encounter for screening for malignant neoplasm of colon (principal); K57.30 Diverticulosis of large intestine without perforation or abscess without bleeding; K58.2 Mixed irritable bowel syndrome; I10 Essential (primary) hypertension; E11.9 Type 2 diabetes mellitus without complications; K21.9 Gastro-esophageal reflux disease without esophagitis; Z79.624 Long term (current) use of inhibitors of nucleotide synthesis; Z79.52 Long term (current) use of systemic steroids; Z79.4 Long term (current) use of insulin; Z79.2 Long term (current) use of antibiotics; Z79.621 Long term (current) use of calcineurin inhibitor; Z79.899 Other long term (current) drug therapy; Z94.0 Kidney transplant status; Z88.8 Allergy status to other drugs, medicaments and biological substances
CPT/HCPCS: J2704; G0121; 45378

== ENCOUNTER → 2024-04-02 | Outpatient (CLI) | payer MEDICARE, BC ==
[2024-04-02 15:23] LABS: Appearance,Urine Clear (Clear); Bilirubin,Urine Negative (Negative); Blood,Urine Negative (Negative); Color,Urine Yellow (Yellow); Ketones,Urine Negative (Negative); Nitrite,Urine Negative (Negative); Specific Gravity,Urine 1.008 (1.001-1.030); Urobilinogen,Urine 0.2 E.U./DL
[2024-04-02 15:26] LABS: Bacteria,Urine None Seen (None Seen)
[2024-04-02 17:09] LABS: % Iron Saturation 57.83 (15.00-50.00); ALT 26 U/L (10-49); AST 18 U/L (14-35); Albumin 4.1 g/dL (3.8-4.9); Albumin/Globulin Ratio 1.95 Ratio (1.60-3.17); Alkaline Phosphatase 127 U/L (41-126); BUN/Creat Ratio 18.28 Ratio (12.00-20.00); Bilirubin, Conjugated 0.22 mg/dL (0.20-0.40); Bilirubin,Unconjugated 0.28 mg/dL (0.20-1.00); Blood Urea Nitrogen 32.9 mg/dL (9.0-27.0); Calcium 9.4 mg/dL (8.7-10.3); Carbon Dioxide 28.5 mmol/L (21.6-31.8); Chloride 99 mmol/L (96-109); Chol/HDL Ratio 2.71 Ratio; Ferritin 86.1 ng/mL (22.0-322.0); Globulin 2.1 g/dL (1.6-3.3); Glucose 57 mg/dL (70-110); Iron 144 UG/DL (65-175); LDL Cholesterol,Calculated 58.9 mg/dL (0.0-131.0); Magnesium 2.2 mg/dL (1.5-2.4); Phosphorus 3.8 mg/dL (2.4-5.1); Potassium 5.4 mmol/L (3.5-5.5); Sodium 139 mmol/L (135-145); Total Bilirubin 0.5 mg/dL (0.3-1.2); Total Iron Binding Capacity 249 UG/DL (228-460); Total Protein 6.2 g/dL (6.2-8.2); Uric Acid 6.1 mg/dL (3.7-8.7); VLDL Calculation 16.24 mg/dL (5.00-40.00)
[2024-04-02 17:15] LABS: Basophils # (A) 0.04 X 10*3/uL (0.00-0.10); Basophils % (A) 0.4 %; Eosinophils # (A) 0.03 X 10*3/uL (0.04-0.35); Eosinophils % (A) 0.3 %; HCT 48.9 % (39.6-50.0); HGB 14.8 g/dL (13.0-17.0); Lymphocytes # (A) 0.36 X 10*3/uL (0.90-5.00); MCH 27.9 pg (27.0-32.0); MCHC 30.3 g/dL (32.0-37.0); MCV 92.3 FL (80.0-97.0); Mean Platelet Volume 12.4 FL (9.5-12.2); Monocytes # (A) 0.64 X 10*3/uL (0.20-1.00); Monocytes % (A) 7.1 %; NRBC Per 100 WBC 0 X 10*3/uL (0.00-0.01); Neutrophils # (A) 7.82 X 10*3/uL (1.80-7.70); Neutrophils % (A) 86.8 %; Platelet Count 210 X 10*3/uL (140-440); WBC 9.02 X 10*3/uL (4.50-10.00)
[2024-04-02 18:05] LABS: Urine Creatinine 34.2 mg/dL (39.0-259.0)
[2024-04-03 15:14] LABS: Tacrolimus (FK506) 4.3 ng/mL (5.0-20.0)
== END | disposition home or self-care (01) ==
LOC: LABWHC1 08:07
PROVIDERS: ATTEND Internal Medicine Nephrology
DX: N18.32 Chronic kidney disease, stage 3b (principal); D63.1 Anemia in chronic kidney disease; E55.9 Vitamin D deficiency, unspecified; N25.81 Secondary hyperparathyroidism of renal origin; M10.9 Gout, unspecified; N39.0 Urinary tract infection, site not specified; R80.9 Proteinuria, unspecified
CPT/HCPCS: 36415; 80053; 80061; 80076; 80197; 81001; 82040; 82043; 82306; 82570; 82728; 83036; 83540; 83550; 83735; 83970; 84100; 84270; 84403; 84550; 85025

== ENCOUNTER → 2024-06-13 | Outpatient (CLI) | payer MEDICARE, BC ==
--- NOTE | 2024-06-13 13:05 | US ---
EXAMINATION TYPE: US kidneys/renal and bladder DATE OF EXAM: 06/13/2024 COMPARISON: CT 05/01/24, US 07/20/23 CLINICAL INDICATION: Male, 53 years old with history of N13.30 HYDRONEPHROSIS; ASSESS FOR STONES AND HYDRO TECHNIQUE: Grayscale imaging of the bilateral kidneys and urinary bladder: FINDINGS: EXAM MEASUREMENTS: [place] Right Kidney: 7.0x3.6x3.9 cm [place] Left Kidney: 8.3x4.1x3.3 cm Transplant Kidney: 10.6x4.4x4.3cm Right Kidney: atrophic, scattered microcalcifications Left Kidney: atrophic Transplant Kidney: No stones or hydro Bladder: wnl Atrophy of the [place] kidneys are redemonstrated. Transplant right pelvis appears within normal limit s. The urinary bladder is anechoic. IMPRESSION: No hydronephrosis in the transplant kidney. [facility] Jai Esposito, , 06/13/2024 1:02 PM
== END | disposition home or self-care (01) ==
LOC: RADUSWWP 12:18
PROVIDERS: ATTEND Urology
DX: R39.14 Feeling of incomplete bladder emptying (principal); N40.1 Benign prostatic hyperplasia with lower urinary tract symptoms; N39.0 Urinary tract infection, site not specified; N26.1 Atrophy of kidney (terminal)
CPT/HCPCS: 76770

== ENCOUNTER → 2024-06-16 | Outpatient (CLI) | payer MEDICARE, BC ==
[2024-06-16 10:34] LABS: Basophils # (A) 0.06 X 10*3/uL (0.00-0.10); Eosinophils # (A) 0.13 X 10*3/uL (0.04-0.35); Eosinophils % (A) 2.2 %; HCT 42.9 % (39.6-50.0); HGB 13.6 g/dL (13.0-17.0); Lymphocytes # (A) 0.54 X 10*3/uL (0.90-5.00); Lymphocytes % (A) 8.9 %; MCH 28.3 pg (27.0-32.0); MCHC 31.7 g/dL (32.0-37.0); MCV 89.4 FL (80.0-97.0); Mean Platelet Volume 11.4 FL (9.5-12.2); Monocytes # (A) 1.03 X 10*3/uL (0.20-1.00); Monocytes % (A) 17.1 %; NRBC Per 100 WBC 0 X 10*3/uL (0.00-0.01); Neutrophils # (A) 4.16 X 10*3/uL (1.80-7.70); Neutrophils % (A) 68.8 %; Platelet Count 173 X 10*3/uL (140-440); RDW 14.6 % (11.5-14.5); WBC 6.04 X 10*3/uL (4.50-10.00)
[2024-06-16 10:42] LABS: Magnesium 1.9 mg/dL (1.5-2.4); Phosphorus 2.2 mg/dL (2.4-5.1); Uric Acid 4.9 mg/dL (3.7-8.7)
[2024-06-17 08:35] LABS: ALT 41 U/L (10-49); AST 23 U/L (14-35); Albumin 3.7 g/dL (3.8-4.9); Albumin/Globulin Ratio 1.68 Ratio (1.60-3.17); Alkaline Phosphatase 80 U/L (41-126); Bilirubin, Conjugated 0.22 mg/dL (0.20-0.40); Bilirubin,Unconjugated 0.28 mg/dL (0.20-1.00); Blood Urea Nitrogen 27.2 mg/dL (9.0-27.0); Calcium 8.9 mg/dL (8.7-10.3); Carbon Dioxide 22.2 mmol/L (21.6-31.8); Chloride 97 mmol/L (96-109); Globulin 2.2 g/dL (1.6-3.3); Glucose 60 mg/dL (70-110); Potassium 4.8 mmol/L (3.5-5.5); Sodium 131 mmol/L (135-145); Total Bilirubin 0.5 mg/dL (0.3-1.2); Total Protein 5.9 g/dL (6.2-8.2)
== END | disposition home or self-care (01) ==
LOC: LABWHC1 07:47
PROVIDERS: ATTEND Internal Medicine Nephrology
DX: R73.01 Impaired fasting glucose (principal); Z94.0 Kidney transplant status
CPT/HCPCS: 36415; 80053; 80074; 80197; 82248; 83036; 83735; 84100; 84550; 85025

== ENCOUNTER → 2024-07-12 | Outpatient (CLI) | payer MEDICARE, BC ==
[2024-07-12 14:04] LABS: Basophils # (A) 0.05 X 10*3/uL (0.00-0.10); Basophils % (A) 0.6 %; Eosinophils # (A) 0.08 X 10*3/uL (0.04-0.35); Eosinophils % (A) 0.9 %; HGB 13.8 g/dL (13.0-17.0); Lymphocytes # (A) 0.35 X 10*3/uL (0.90-5.00); Lymphocytes % (A) 3.9 %; MCH 28.5 pg (27.0-32.0); MCHC 31.4 g/dL (32.0-37.0); MCV 90.9 FL (80.0-97.0); Mean Platelet Volume 11.2 FL (9.5-12.2); Monocytes # (A) 0.76 X 10*3/uL (0.20-1.00); Monocytes % (A) 8.5 %; NRBC Per 100 WBC 0 X 10*3/uL (0.00-0.01); Neutrophils # (A) 7.52 X 10*3/uL (1.80-7.70); Neutrophils % (A) 84.6 %; Platelet Count 239 X 10*3/uL (140-440); RBC 4.84 X 10*6/uL (4.40-5.60); RDW 14.5 % (11.5-14.5); WBC 8.89 X 10*3/uL (4.50-10.00)
[2024-07-12 14:19] LABS: Urine Creatinine 23.3 mg/dL (39.0-259.0)
[2024-07-12 14:36] LABS: % Iron Saturation 49.56 (15.00-50.00); ALT 20 U/L (10-49); AST 14 U/L (14-35); Albumin 4.1 g/dL (3.8-4.9); Albumin/Globulin Ratio 1.95 Ratio (1.60-3.17); Alkaline Phosphatase 82 U/L (41-126); BUN/Creat Ratio 19.82 Ratio (12.00-20.00); Bilirubin, Conjugated 0.23 mg/dL (0.20-0.40); Bilirubin,Unconjugated 0.27 mg/dL (0.20-1.00); Blood Urea Nitrogen 33.7 mg/dL (9.0-27.0); Calcium 9.3 mg/dL (8.7-10.3); Chloride 100 mmol/L (96-109); Chol/HDL Ratio 2.77 Ratio; Globulin 2.1 g/dL (1.6-3.3); Glucose 106 mg/dL (70-110); Iron 113 UG/DL (65-175); LDL Cholesterol,Calculated 55.5 mg/dL (0.0-131.0); Phosphorus 3.7 mg/dL (2.4-5.1); Potassium 5.1 mmol/L (3.5-5.5); Sodium 140 mmol/L (135-145); Total Bilirubin 0.5 mg/dL (0.3-1.2); Total Iron Binding Capacity 228 UG/DL (228-460); Total Protein 6.2 g/dL (6.2-8.2); Uric Acid 5.8 mg/dL (3.7-8.7); VLDL Calculation 14.14 mg/dL (5.00-40.00)
[2024-07-12 16:14] LABS: Appearance,Urine Cloudy (Clear); Bilirubin,Urine Negative (Negative); Blood,Urine Negative (Negative); Color,Urine Yellow (Yellow); Ketones,Urine Negative (Negative); Nitrite,Urine Negative (Negative); Specific Gravity,Urine 1.006 (1.001-1.030); Urobilinogen,Urine 0.2 E.U./DL
[2024-07-12 16:21] LABS: Bacteria,Urine None Seen (None Seen)
[2024-07-14 11:56] LABS: Tacrolimus (FK506) 4.8 ng/mL (5.0-20.0)
[2024-07-14 13:57] LABS: BK Virus DNA PCR, Qualitative Not detected (Not detected); BKV DNA (PCR), Quant <125 Copies/mL (<125); LOG BKV Copies/mL <2.10 (<2.10)
== END | disposition home or self-care (01) ==
LOC: LABWHC1 07:42
PROVIDERS: ATTEND Nurse Practitioner Family
DX: N18.32 Chronic kidney disease, stage 3b (principal); E55.9 Vitamin D deficiency, unspecified; N25.81 Secondary hyperparathyroidism of renal origin; N39.0 Urinary tract infection, site not specified; M10.9 Gout, unspecified; D63.1 Anemia in chronic kidney disease; Z94.0 Kidney transplant status
CPT/HCPCS: 36415; 80053; 80061; 80197; 81001; 82040; 82043; 82248; 82306; 82570; 82728; 83540; 83550; 83735; 83970; 84100; 84270; 84403; 84550; 85025

== ENCOUNTER → 2024-08-06 | Outpatient (CLI) | payer MEDICARE, BC | END | disposition home or self-care (01) | LOC: LABWHC1 07:56 | PROVIDERS: ATTEND Internal Medicine Nephrology | DX: R73.09 Other abnormal glucose (principal); Z94.0 Kidney transplant status | CPT/HCPCS: 36415; 80197 ==

== ENCOUNTER → 2024-09-15 | Outpatient (CLI) | payer MEDICARE, BC ==
[2024-09-15 15:31] LABS: Basophils # (A) 0.03 X 10*3/uL (0.00-0.10); Basophils % (A) 0.4 %; Eosinophils # (A) 0.06 X 10*3/uL (0.04-0.35); Eosinophils % (A) 0.7 %; HCT 44.6 % (39.6-50.0); HGB 14.3 g/dL (13.0-17.0); Lymphocytes # (A) 0.32 X 10*3/uL (0.90-5.00); Lymphocytes % (A) 3.8 %; MCHC 32.1 g/dL (32.0-37.0); MCV 90.5 FL (80.0-97.0); Mean Platelet Volume 11.6 FL (9.5-12.2); Monocytes # (A) 0.72 X 10*3/uL (0.20-1.00); Monocytes % (A) 8.5 %; NRBC Per 100 WBC 0 X 10*3/uL (0.00-0.01); Neutrophils # (A) 7.23 X 10*3/uL (1.80-7.70); Neutrophils % (A) 84.7 %; Platelet Count 191 X 10*3/uL (140-440); RBC 4.93 X 10*6/uL (4.40-5.60); RDW 13.4 % (11.5-14.5); WBC 8.52 X 10*3/uL (4.50-10.00)
[2024-09-15 15:44] LABS: BUN/Creat Ratio 20.94 Ratio (12.00-20.00); Blood Urea Nitrogen 33.5 mg/dL (9.0-27.0); Glucose 88 mg/dL (70-110)
[2024-09-15 15:45] LABS: ALT 25 U/L (10-49); AST 19 U/L (14-35); Albumin 4.2 g/dL (3.8-4.9); Alkaline Phosphatase 87 U/L (41-126); Bilirubin, Conjugated 0.23 mg/dL (0.20-0.40); Bilirubin,Unconjugated 0.27 mg/dL (0.20-1.00); Calcium 9.2 mg/dL (8.7-10.3); Carbon Dioxide 26.9 mmol/L (21.6-31.8); Chloride 95 mmol/L (96-109); Phosphorus 2.5 mg/dL (2.4-5.1); Potassium 5.5 mmol/L (3.5-5.5); Sodium 132 mmol/L (135-145); Total Bilirubin 0.5 mg/dL (0.3-1.2); Total Protein 6.2 g/dL (6.2-8.2); Uric Acid 5.3 mg/dL (3.7-8.7)
== END | disposition home or self-care (01) ==
LOC: LABWHC1 11:23
PROVIDERS: ATTEND Internal Medicine Nephrology
DX: R73.01 Impaired fasting glucose (principal); Z94.0 Kidney transplant status
CPT/HCPCS: 36415; 80053; 80197; 82248; 83735; 84100; 84550; 85025

== ENCOUNTER → 2024-10-11 | Outpatient (CLI) | payer MEDICARE, BC ==
[2024-10-11 14:51] LABS: Basophils # (A) 0.04 X 10*3/uL (0.00-0.10); Basophils % (A) 0.5 %; Eosinophils # (A) 0.06 X 10*3/uL (0.04-0.35); Eosinophils % (A) 0.7 %; HCT 43.4 % (39.6-50.0); HGB 14.3 g/dL (13.0-17.0); Immature Grans, Automated 1.40 %; Lymphocytes # (A) 0.36 X 10*3/uL (0.90-5.00); Lymphocytes % (A) 4.2 %; MCH 28.9 pg (27.0-32.0); MCHC 32.9 g/dL (32.0-37.0); MCV 87.9 FL (80.0-97.0); Monocytes # (A) 0.81 X 10*3/uL (0.20-1.00); Monocytes % (A) 9.6 %; NRBC Per 100 WBC 0 X 10*3/uL (0.00-0.01); Neutrophils # (A) 7.09 X 10*3/uL (1.80-7.70); Neutrophils % (A) 83.6 %; Platelet Count 181 X 10*3/uL (140-440); RBC 4.94 X 10*6/uL (4.40-5.60); RDW 12.8 % (11.5-14.5); WBC 8.48 X 10*3/uL (4.50-10.00)
[2024-10-11 15:12] LABS: Cholesterol 87.00 mg/dL (0.00-200.00); HDL Cholesterol 33.80 mg/dL (40.00-60.00); Iron 140 UG/DL (65-175)
[2024-10-11 15:13] LABS: ALT 32 U/L (10-49); AST 19 U/L (14-35); Albumin 4.0 g/dL (3.8-4.9); Albumin/Globulin Ratio 2.67 Ratio (1.60-3.17); Alkaline Phosphatase 78 U/L (41-126); Anion Gap 12.10 mmol/L (4.00-12.00); BUN/Creat Ratio 19.24 Ratio (12.00-20.00); Bilirubin,Unconjugated 0.26 mg/dL (0.20-1.00); Blood Urea Nitrogen 32.7 mg/dL (9.0-27.0); Calcium 8.9 mg/dL (8.7-10.3); Carbon Dioxide 24.9 mmol/L (21.6-31.8); Chloride 96 mmol/L (96-109); Ferritin 89.3 ng/mL (22.0-322.0); Globulin 1.5 g/dL (1.6-3.3); Glucose 95 mg/dL (70-110); LDL Cholesterol,Calculated 33.7 mg/dL (0.0-131.0); Magnesium 1.9 mg/dL (1.5-2.4); Potassium 5.0 mmol/L (3.5-5.5); Sodium 133 mmol/L (135-145); Total Iron Binding Capacity 232 UG/DL (228-460); Total Protein 5.5 g/dL (6.2-8.2); Triglycerides 97.60 mg/dL (0.00-149.00); Uric Acid 4.8 mg/dL (3.7-8.7); VLDL Calculation 19.52 mg/dL (5.00-40.00)
[2024-10-11 15:52] LABS: Bilirubin,Urine Negative (Negative); Blood,Urine Negative (Negative); Color,Urine Yellow (Yellow); Ketones,Urine Negative (Negative); Nitrite,Urine Negative (Negative); PH, Urine 7.5; Specific Gravity,Urine 1.005 (1.001-1.030); Urobilinogen,Urine 0.2 E.U./DL
[2024-10-11 15:56] LABS: Bacteria,Urine None Seen (None Seen)
[2024-10-13 14:53] LABS: BK Virus DNA PCR, Qualitative DETECTED (Not detected); BKV DNA (PCR), Quant <125 Copies/mL (<125); LOG BKV Copies/mL <2.10 (<2.10)
== END | disposition home or self-care (01) ==
LOC: LABWHC1 07:56
PROVIDERS: ATTEND Internal Medicine Nephrology
DX: N18.32 Chronic kidney disease, stage 3b (principal); N25.81 Secondary hyperparathyroidism of renal origin; E55.9 Vitamin D deficiency, unspecified; Z94.0 Kidney transplant status; R73.01 Impaired fasting glucose; M10.9 Gout, unspecified; D64.9 Anemia, unspecified
CPT/HCPCS: 36415; 80053; 80061; 80197; 81001; 82043; 82248; 82306; 82570; 82728; 83036; 83540; 83550; 83735; 83970; 84100; 84270; 84402; 84403; 84550; 85025